=== PATIENT | male | born 1985 | race Caucasian/White ===

== ENCOUNTER 2019-06-27 15:46 | Emergency (ER) | payer SELFPAY ==
[2019-06-27 15:50] VITALS: BMI 31.4
[2019-06-27 15:52] VITALS: BP 129/86; PULSE 70; RESP 15; TEMP 36.6; O2SAT 97
--- NOTE | 2019-06-27 16:07 | ED_ITS ---
Entered by Samira Saldana, acting as scribe for David Allison HPI - Male Genitourinary General: Chief complaint: Urogenital-Male Stated complaint: scrotal pain Time Seen by Provider: 06/27/19 16:06 Source: patient Mode of arrival: ambulatory Limitations: no limitations History of Present Illness: HPI Narrative: 33 yo Male presents to ED with complaint of testicular pain. Pt states that it feels like he is being kicked in the balls. Pt states that he has constant throbbing pain. Pt states that he works nights and does heavy lifting at work. 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 MD Complaint: testicle pain Onset (ago): hour(s) (2) Duration: constant Location: left testicle Severity scale (1-10): 10 Quality: other (throbbing) Relieving factors: none Exacerbating factors: none Associated symptoms: Deny dysuria, fevers/chills, nausea or vomiting Review of Systems General: Reports: 10 or more systems reviewed and unremarkable except in HPI and below Const: Denies: fever or chills Eyes: Denies: change in vision, blurry vision or blind spots ENMT: Denies: throat pain, painful swallowing, hoarseness or mouth pain Card: Denies: chest pain, palpitations, irregular heart rhythm, edema or swelling of feet/ankles Resp: Denies: shortness of breath, productive cough or non-productive cough GI: Reports: abdominal pain (left lower); Denies: nausea or vomiting : Reports: testicular pain (left); Denies: painful urination Musc: Denies: neck pain, back pain, extremity pain or extremity swelling Skin/Breast: Denies: rash, itching or redness Neuro: Denies: headache, numbness in extremities or weakness in extremities Endo: Denies: excessive urination, excessive thirst or tired all the time Willie/Lymph: Denies: easy bruising or easy bleeding PFSH ED PFSH: Statuses (acute, chronic, etc) shown below reflect problem list status as previously entered and may not be historically accurate Social History Smoking and tobacco status: current every day smoker Physical Exam Const: COMMON NORMALS: no apparent distress, average body habitus, oriented x3, no limitations, healthy appearing, alert and well nourished HENMT: COMMON NORMALS: normocephalic, head/scalp atraumatic, hearing grossly normal bilaterally, external ears normal, EAC's normal, TM's normal bilaterally, external nose normal, nasal mucous membranes and turbinates normal, moist oral mucous membranes, oropharynx normal, dentition normal and gingiva normal HEAD & SCALP: normocephalic and atraumatic NOSE: external nose normal and nasal mucous membranes and turbinates normal EXTERNAL EAR: Yes external ears normal EXTERNAL AUDITORY CANAL: EAC's normal TYMPANIC MEMBRANE: TM's normal bilaterally Eye: COMMON NORMALS: PERRL, EOMs intact bilaterally, conjunctivae normal, no scleral icterus, no papilledema, normal visual rousseau by confrontation and fundi normal bilaterally CONJUNCTIVA: Yes conjunctivae normal PUPIL: Yes PERRL DIRECT OPHTHALMOSCOPY: Yes no papilledema and Yes fundi normal bilaterally Neck/C-Spine: COMMON NORMALS: full ROM, no lymphadenopathy, supple, no meningeal signs, no JVD, thyroid normal and no carotid bruits THYROID: thyroid normal Chest: COMMONS NORMALS: inspection of chest normal, palpation of chest normal, inspection of breasts normal and palpation of breasts normal Resp: COMMON NORMALS: normal respiratory effort, no retractions, no use of ac cessory muscles, clear to auscultation bilaterally and percussion normal AUSCULTATION: clear to auscultation bilaterally PERCUSSION: percussion normal Cardio: COMMON NORMALS: no JVD, regular rate, regular rhythm, S1 normal heart sound, S2 normal heart sound, no gallops, no clicks, no murmurs, no rub and peripheral pulses 2+ throughout RATE: regular rate RHYTHM: regular rhythm HEART SOUNDS: S1 normal and S2 normal PERIPHERAL PULSES: pulses 2+ throughout GI: COMMON NORMALS: normal to inspection, nondistended, normoactive bowel sounds, soft to palpation, non-tender, no hepatosplenomegaly, no masses and no bruits PALPATION: Yes soft and Yes no hepatosplenomegaly : COMMON NORMALS: Yes no CVA tenderness BLADDER/KIDNEY EXAM: Yes no CVA tenderness Back/Pelvis: COMMON NORMALS: no CVA tenderness, thoracic and lumbar spine normal to inspection, no thoracic nor lumbar tenderness, thoraco-lumbar ROM normal and straight leg raise negative bilaterally Extremity: COMMON NORMALS: normal to inspection, full ROM, normal capillary refill, no joint enlargement, no clubbing, cyanosis or edema, no calf tenderness and no pedal edema Neuro: COMMON NORMALS: oriented x3 SENSORIUM/ORIENTATION: Yes alert MENINGEAL SIGNS: Yes no meningeal signs Skin: COMMON NORMALS: no rashes or lesions noted, no wounds, skin turgor normal, no jaundice, no petechiae and no mottling GENERAL SKIN EXAM: no rashes or lesions noted and turgor normal Course Vital Signs: Vital signs: Vital Signs Temperature 97.8 F 06/27/19 15:52 Pulse Rate 70 06/27/19 15:52 Respiratory Rate 15 06/27/19 15:52 Blood Pressure 129/86 06/27/19 15:52 Pulse Oximetry 97 06/27/19 15:52 MDM - Male Lab Data: Labs: Lab Results 06/27/19 Range/Units 17:13 Urine Color Yellow (Yellow) Urine Appearance Clear (CLEAR) Urine pH 5 (5-7) Ur Specific Gravit y 1.030 (1.005-1.030) Urine Protein Neg (Negative) Urine Glucose (UA) Norm (Normal) Urine Ketones Negative (Negative) Urine Occult Blood 3+ H (Negative) Urine Nitrate Negative (Negative) Urine Bilirubin Neg (NEGATIVE) Urine Urobilinogen Norm (Negative) mg/dL Ur Leukocyte Rosalina ase Negative (Negative) Urine RBC 10-15 H (0-2) /hpf Urine WBC 0-4 H (0-5) /hpf Ur Squamous Epith Cells 0-4 H (0-5) Urine Bacteria 2+ H (NONE) Hyaline Casts 0-4 H Urine Mucus 4+ Discharge Plan Discharge Patient Disposition: Home, Self-Care Clinical Impression: Epididymitis Urinary tract infection Qualifiers: Urinary tract infection type: site unspecified Hematuria presence: with hematu karen Qualified Code(s): N39.0 - Urinary tract infection, site not specified Condition: Stable Prescriptions: New Cipro 500 mg tablet 500 mg PO BID Qty: 20 RF: 0 Discharge Orders: Discharge Order (Routine); Ordered 06/27/19 Ordered By: David Allison Discharge Diet: Usual diet Discharge Activity: Resume usual activity Patient Instructions: Epididymitis, Urinary Tract Infection in Men (ED) Activity Restrictions/Additional Instructions: Epididymitis increased noncaffeine/nonalcoholic fluid Case management will follow up with you to obtain a primary care provider Coding Level of Care Code ED Coal Pulverizing Operator for Chg Fwd Exam Problem Focused The documentation recorded by the Les rodriguez Carmen, accurately reflects the service I personally performed and the decisions made by me, David Allison Jun 27, 2019 15:46
--- NOTE | 2019-06-27 17:09 | US_ITS ---
WS: [id number] Scrotal and testicular ultrasound, 06/27/2019 Clinical Data: left testicle pain Comparison: None. Findings: The right testes measures 4.03 cm x 2.5 to cm x 2.7. cm. The left testes measures 4.29 cm x 2.49 cm x 3.14 cm. There is normal bilateral blood flow with no evidence of orchitis or torsion. No masses or abnormal c alcifications are noted. Both epididymides are enlarged with increased flow. There is a small left varicocele. US/US scrotum [id number] Impression: 1. Bilateral epididymitis. 2. Negative testes.
[2019-06-27 17:25] LABS: Add Urine Microscopic? YES; Bilirubin Urine Neg (NEGATIVE); Blood Urine 3+ (Negative); Glucose Urine UA Norm (Normal); Ketones Urine Negative (Negative); Leukocyte Esterase Urine Negative (Negative); Nitrate Urine Negative (Negative); Protein Urine Neg (Negative); Urine Appearance Clear (CLEAR); Urine Color Yellow (Yellow); Urobilinogen Urine Norm (Negative); pH Urine 5 (5-7)
[2019-06-27 17:47] LABS: Mucus Urine 4+
[2019-06-27 17:50] LABS: Bacteria Urine 2+; Squamous Epithelial Cell Urine 0-4 (0-5); WBC Urine 0-4 /hpf (0-5)
[2019-06-27 17:51] LABS: Add Urine Culture? Yes; Hyaline Casts Urine 0-4
[2019-06-27 18:22] VITALS: BP 124/77; PULSE 55; O2SAT 96
--- NOTE | 2019-06-28 14:37 | DCPLANNER ---
outside sales account manager had message to speak with patient about getting established with a primary care physician. outside sales account manager spoke with patient and offered to help patient get established with someone. Patient stated that he wanted to wait right now because he was in the middle of switching insurances and he wanted to wait until his new insurance was in effect. outside sales account manager told patient that when he was ready to get a primary care physician that he could call leather case finisher and they would be glad to help patient find a primary care physician.
== END 2019-06-27 18:22 | disposition home or self-care (01) ==
PROVIDERS: Emergency Provider Emergency Medicine
DX: N45.1 Epididymitis (principal); N39.0 Urinary tract infection, site not specified; R31.9 Hematuria, unspecified; F17.210 Nicotine dependence, cigarettes, uncomplicated
CPT/HCPCS: 76870; 81003; 87086; 99282; 99283

== ENCOUNTER 2021-06-26 03:33 | Emergency (ER) | payer BC, SELFPAY ==
[2021-06-26 03:34] VITALS: BP 131/78; PULSE 82; RESP 18; TEMP 36.7; O2SAT 95; BMI 32.7
--- NOTE | 2021-06-26 03:34 | XRR_ITS ---
PROCEDURE INFORMATION: Exam: XR Chest Exam date and time: 06/26/2021 3:34 AM Age: 35 years old Clinical indication: Sternal or substernal pain; Patient HX: C/O sudden onset of substernal chest pain. ; Additional info: Cp TECHNIQUE: Imaging protocol: XR of the chest. Views: 1 view. COMPARISON: CR Chest 1 [place] [id number] 01/20/2017 5:03 PM FINDINGS: Lungs: Bibasilar opacities which could be secondary to atelectasis or pneumonia. Pleural spaces: Unremarkable. No pleural effusion. No pneumothorax. Heart/Mediastinum: Unremarkable. No cardiomegaly. Bones/joints: Unremarkable. XR/XR chest 1V portable [id number] IMPRESSION: Bibasilar opacities which could be secondary to atelectasis or pneumonia.
--- NOTE | 2021-06-26 03:34 | ECG_ITS ---
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
[2021-06-26] MEDS: sodium chloride 0.9% 1,000 ML 999 ML IV (03:45)
--- NOTE | 2021-06-26 03:47 | ED_ITS ---
HPI - Chest Pain General: Chief Complaint: Chest Pain Stated Complaint: CHEST PAIN Time Seen by Provider: 06/26/21 03:39 Source: patient and EMS Mode of arrival: EMS Limitations: no limitations History of Present Illness: HPI narrative: 35-year-old male states he is at work tonight and started to feel like his hands were shaking states he started having some chest pain Worsening then had numbness to his hands and felt like he had blurry vision. He states that started an hour ago states the pain is worsened he started to feel little improved he does appear anxious here. Denies any shortness of breath or fever denies any worsening improving factors. Associated symptoms: Deny abdominal pain, dyspnea, fever(s), nausea or vomiting Review of Systems Const: Denies: fever(s), chills, body aches or change in appetite Eyes: Denies: blurry vision or eye discomfort ENMT: Denies: throat pain or dental pain Card: Reports: chest pain Resp: Denies: dyspnea GI: Denies: abdominal pain, nausea, vomiting or diarrhea : Denies: dysuria Musc: Denies: neck pain or back pain Skin/Breast: Denies: rash Neuro: Denies: headache(s) Psych: Denies: depression Willie/Lymph: Denies: easy bruising All/Imm: Denies: urticaria PFSH ED PFSH: Medical History No pertinent past medical history Social History Smoking and tobacco status: current every day smoker Physical Exam Const: COMMON NORMALS: no acute distress, patient oriented x3 and healthy appearing HENMT: COMMON NORMALS: normocephalic and atraumatic HEAD & SCALP: normocephalic and atraumatic Eye: COMMON NORMALS: Equal, round and reactive pupils present and EOMs intact bilaterally PUPIL: Yes Equal, round and reactive pupils present Neck/C-Spine: COMMON NORMALS: full ROM and supple Chest: COMMONS NORMALS: normal inspection of the chest and normal palpation of entire chest wall Resp: COMMON NORMALS: normal respiratory effort, No retractions, No use of accessory muscles and clear to auscultation bilaterally AUSCULTATION: clear to auscultation bilaterally Cardio: COMMON NORMALS: regular rate, regular rhythm and No murmurs present (Cardio) RATE: regular rate RHYTHM: regular rhythm GI: COMMON NORMALS: Normal to inspection, nondistended, normoactive bowel sounds present, Soft to palpation, non-tender and no masses PALPATION: Yes Soft to palpation Extremity: COMMON NORMALS: normal to inspection and full ROM Neuro: COMMON NORMALS: patient oriented x3, moves all extremities and no focal motor deficits Psych: COMMON NORMALS: mental status grossly normal, Normal thought process present and cooperative THOUGHT PROCESS: Normal thought process present Skin: COMMON NORMALS: no rashes or lesions noted and no wounds GENERAL SKIN EXAM: no rashes or lesions noted Course Vital Signs: Vital signs: Vital Signs Temperature 98.1 F 06/26/21 03:34 Pulse Rate 82 06/26/21 03:34 Respiratory Rate 17 06/26/21 04:46 Blood Pressure 131/78 06/26/21 03:34 Pulse Oximetry 97 06/26/21 04:46 MDM - Chest Pain MDM Narrative: Medical decision making narrative: Patient presents here with chest pain his initial repeat troponin here is negative so is a D-dimer x-ray and EKGs are normal as well. He is no signs of acute coronary syndrome or aortic dissection his pain is improved. He is stable for discharge is to follow-up with PCP and return if worsening. Lab Data: Labs: Lab Results 06/26/21 06/26/21 06/26/21 03:30 03:30 03:30 WBC 8.7 10^3/uL 10^3/ uL (4.0-10.0) RBC 6.04 10^6/uL H 10 ^6/uL (4.1-5.3) Hgb 18.3 g/dL H g/dL (11.7-16.6) Hct 54.8 % H % (42.0-52.0) MCV 90.7 fl fl (80-94) MCH 30.3 pg pg (28.0-34.0) MCHC 33.4 g/dL g/dL (30.0-36.0) RDW 13.7 % % (12.1-15.1) Plt Count 207 10^3/cmm 10^3 /cmm (130-400) MPV 12.8 fL H fL (7.4-10.4) Neut % (Auto) 39.5 % % Lymph % (Auto) 44.5 % % [place] % (Auto) 10.6 % % Eos % (Auto) 4.2 % % Baso % (Auto) 0.9 % % Neut # (Auto) 3.42 10^3/uL 10^3 /uL (1.8-7.7) Lymph # (Auto) 3.9 10^3/uL 10^3/ uL (0.8-4.8) [place] # (Auto) 0.9 10^3/uL 10^3/ uL (0.2-0.9) Eos # (Auto) 0.4 10^3/uL 10^3/ uL (0.0-0.8) Baso # (Auto) 0.1 10^3/uL 10^3/ uL (0.0-0.1) Nucleated RBC % (a uto) 0 % % Nucleated RBCs # 0.0 /100WBC /100W BC D-Dimer Sodium 140 mmol/L mmol/L (136-145) Potassium 4.1 mmol/L mmol/L (3.5-5.1) Chloride 102 mmol/L mmol/L (98-107) Carbon Dioxide 24 mmol/L mmol/L (22-29) Anion Gap 18.1 (5-19) BUN 18 mg/dL mg/dL (6-20) Creatinine 0.9 mg/dL mg/dL (0.7-1.2) GFR Calculation 95.5 mL/min mL/mi n (90-130) Glucose 78 mg/dL mg/dL (65-115) Calculated Osmolal ity 291 mOsm/kg mOsm/ kg (285-295) Calcium 8.9 mg/dL mg/dL (8.5-10.5) Total Bilirubin 0.4 mg/dL mg/dL (0.15-1.2) AST 26 U/L U/L (0-40) ALT 60 U/L H U/L (0-41) Alkaline Phosphata se 115 IU/L IU/L (40-130) Troponin T Baselin e 6 ng/L ng/L (0-15) Troponin T 120 Min [place] Delta Troponin T Total Protein 7.2 g/dL g/dL (6.6-8.7) Albumin 4.7 g/dL g/dL (3.5-5.2) Globulin 2.5 g/dL g/dL (1.3-4.6) 06/26/21 06/26/21 03:30 04:45 WBC RBC Hgb Hct MCV MCH MCHC RDW Plt Count MPV Neut % (Auto) Lymph % (Auto) [place] % (Auto) Eos % (Auto) Baso % (Auto) Neut # (Auto) Lymph # (Auto) [place] # (Auto) Eos # (Auto) Baso # (Auto) Nucleated RBC % (a uto) Nucleated RBCs # D-Dimer <= 0.27 ug/mIFEU ug/mIFEU (0-0.59) Sodium Potassium Chloride Carbon Dioxide Anion Gap BUN Creatinine GFR Calculation Glucose Calculated Osmolal ity Calcium Total Bilirubin AST ALT Alkaline Phosphata se Troponin T Baselin e Troponin T 120 Min [place] 6.00 ng/L ng/L (0-15) Delta Troponin T 0 ABS# ABS# (0-10) Total Protein Albumin Globulin Imaging Data^: CXR: Attestation: I personally reviewed and interpreted this imaging study as follows: My impression: no acute abnormality EKG Data^: EKG 1: Attestation: I personally reviewed and interpreted this EKG as follows: EKG interpretation date: 06/26/21 EKG interpretation time: 03:42 Interpretation: nsr hr [address] or t wave abnormalities qrs 124 qtc 419 EKG 2: Attestation: I personally reviewed and interpreted this EKG as follows: EKG interpretation date: 06/26/21 EKG interpretation time: 04:57 Interpretation: sinus semea hr [address] or t wave abnormalities qrs 103 qtc 413 Discharge Plan Discharge Patient Disposition: Home Clinical Impression: Chest pain Qualifiers: Chest pain type: unspecified Qualified Code(s): R07.9 - Chest pain, unspecified Condition: Stable Prescriptions: No Action Cipro 500 mg tablet 500 mg PO BID Qty: 20 RF: 0 Discharge Orders: Discharge ED (Routine); Ordered 06/26/21 Ordered By: Alia West Discharge Diet: Advance as tolerated Discharge Activity: Resume usual activity Patient Instructions: Chest Pain (ED) Coding Level of Care Code ED Rooms Director for Chg Fwd Exam Comprehensive
[2021-06-26 03:56] LABS: Basophils # 0.1 10^3/uL (0.0-0.1); Basophils % 0.9 %; Eosinophils # 0.4 10^3/uL (0.0-0.8); Eosinophils % 4.2 %; Hematocrit 54.8 % (42.0-52.0); Hemoglobin 18.3 g/dL (11.7-16.6); Lymphocytes # 3.9 10^3/uL (0.8-4.8); Lymphocytes % 44.5 %; Mean Corpuscular HGB Conc 33.4 g/dL (30.0-36.0); Mean Corpuscular Hemoglobin 30.3 pg (28.0-34.0); Mean Corpuscular Volume 90.7 fl (80-94); Mean Platelet Volume 12.8 fL (7.4-10.4); Monocytes # 0.9 10^3/uL (0.2-0.9); Monocytes % 10.6 %; Neutrophils # 3.42 10^3/uL (1.8-7.7); Neutrophils % 39.5 %; Nucleated Red Blood Cells % 0 %; Platelet Count 207 10^3/cmm (130-400); Red Blood Count 6.04 10^6/uL (4.1-5.3); Red Cell Distribution Width 13.7 % (12.1-15.1); White Blood Count 8.7 10^3/uL (4.0-10.0)
[2021-06-26 04:07] LABS: D Dimer <= 0.27 ug/mIFEU (0-0.59)
[2021-06-26 04:12] LABS: Troponin(5th) Baseline 6 ng/L (0-15)
[2021-06-26 04:15] LABS: Alanine Aminotransferase 60 U/L (0-41); Albumin Level 4.7 g/dL (3.5-5.2); Alkaline Phosphatase 115 IU/L (40-130); Anion Gap 18.1 (5-19); Aspartate Amino Transferase 26 U/L (0-40); Blood Urea Nitrogen 18 mg/dL (6-20); Calcium 8.9 mg/dL (8.5-10.5); Carbon Dioxide 24 mmol/L (22-29); Chloride 102 mmol/L (98-107); Globulin 2.5 g/dL (1.3-4.6); Glomerular Filtration Rate 95.5 mL/min (90-130); Glucose 78 mg/dL (65-115); Osmolality Calculated 291 mOsm/kg (285-295); Potassium 4.1 mmol/L (3.5-5.1); Sodium 140 mmol/L (136-145); Total Bilirubin 0.4 mg/dL (0.15-1.2); Total Protein 7.2 g/dL (6.6-8.7)
[2021-06-26 04:46] VITALS: RESP 17; O2SAT 97
[2021-06-26] MEDS: morphine 4 mg/mL SDV 1 mL IVP (04:46)
[2021-06-26] MEDS: ondansetron 2 mg/ML SDV 2 mL 4 MG IVP (04:50)
[2021-06-26 05:13] LABS: Troponin 5 2HR Delta 0 ABS# (0-10)
[2021-06-26 05:33] VITALS: BP 128/73; PULSE 75; RESP 18; O2SAT 97
--- NOTE | 2021-06-26 05:34 | ECG_ITS ---
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: : 1985 Requested By: Alia West Order Number: [id number] Reading MD: YUNIER WEATHERS Measurements Intervals [place] Rate: 54 P: 31 IN: 175 QRS: -20 QRSD: 103 T: 16 QT: 426 QTc: 407 Interpretive Statements SINUS BRADYCARDIA MINIMAL VOLTAGE CRITERIA FOR LVH, CONSIDER NORMAL VARIANT [MEETS CRITERIA IN ONE OF: R(aVL), S(V1), R(V5), R(V5/V6)+S(V1)] SEPTAL MYOCARDIAL INFARCTION , OF INDETERMINATE AGE [40+ ms Q WAVE IN V1/V2] Compared to ECG 06/26/2021 03:42:55 Myocardial infarct finding now present Sinus rhythm no longer present Intraventricular conduction delay no longer present Electronically Signed On 06-27-2021 17:49:41 TELETYPE INSTALLER by YUNIER WEATHERS [email or web address] memorial [email or web address] Your Imaginationuniversity hospitals [facility].[employer]/store/OM/[id number]
--- NOTE | 2021-06-28 11:43 | DCPLANNER ---
manager banquet had message to speak with patient about getting a primary care physician. manager banquet called phone number [phone], unable to speak with patient at this time, a voicemail was left for patient to return counseling case manager phone call.
== END 2021-06-26 05:35 | disposition home or self-care (01) ==
PROVIDERS: Emergency Provider Emergency Medicine
DX: R07.9 Chest pain, unspecified (principal); F17.210 Nicotine dependence, cigarettes, uncomplicated
CPT/HCPCS: 71045; 80053; 84484; 85025; 85378; 93005; 96361; 96374; 96375; 99284; J2270; J2405; J7030

== ENCOUNTER → 2021-06-28 14:31 | Outpatient (BNVA) | payer BC, SELFPAY | PROVIDERS: Visit Provider Nurse Practitioner Family | DX: Z20.822 Contact with and (suspected) exposure to COVID-19 (principal); Z71.6 Tobacco abuse counseling | CPT/HCPCS: 87635 ==

== ENCOUNTER → 2021-08-27 17:40 | Outpatient (BNVA) | payer BC, SELFPAY | PROVIDERS: Visit Provider Registered Nurse Neonatal Intensive Care | DX: R50.9 Fever, unspecified (principal); Z20.822 Contact with and (suspected) exposure to COVID-19 | CPT/HCPCS: 87400; 87635 ==

== ENCOUNTER → 2022-05-16 12:30 | Outpatient (BNVA) | payer BC, SELFPAY | PROVIDERS: Visit Provider Emergency Medicine | DX: J11.1 Influenza due to unidentified influenza virus with other respiratory manifestations (principal); B34.9 Viral infection, unspecified | CPT/HCPCS: 87400 ==

== ENCOUNTER → 2023-02-01 11:00 | Outpatient (BNVA) | payer BC, SELFPAY | PROVIDERS: Visit Provider Family Medicine | DX: Z13.6 Encounter for screening for cardiovascular disorders (principal) | CPT/HCPCS: 80053; 80061; 83036; 85025 ==

== ENCOUNTER 2023-03-24 02:41 | Emergency (ER) | payer BC, SELFPAY ==
[2023-03-24 02:44] VITALS: BP 154/101; PULSE 74; RESP 18; TEMP 36.6; O2SAT 96; BMI 31.4
--- NOTE | 2023-03-24 02:49 | ECG_ITS ---
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 Measurements Intervals [place] Rate: 68 P: 33 ND: 177 QRS: -16 QRSD: 101 T: 24 QT: 366 QTc: 391 Interpretive Statements SINUS RHYTHM Compared to ECG 06/26/2021 04:57:39 Sinus bradycardia no longer present Myocardial infarct finding no longer present Electronically Signed On 03-24-2023 11:04:19 CDT by Maya Orozco M.D. [id number]
--- NOTE | 2023-03-24 02:54 | XRR_ITS ---
PROCEDURE INFORMATION: Exam: XR Chest Exam date and time: 03/24/2023 2:58 AM Age: 37 years old Clinical indication: Chest wall pain; Patient HX: Middle chest pain that start 12pm yesterday TECHNIQUE: Imaging protocol: Radiologic exam of the chest. Views: 1 view. COMPARISON: CR XR chest 1V portable [id number] 06/26/2021 3:38 AM FINDINGS: Lungs: Unremarkable. No consolidation. Pleural spaces: Unremarkable. No pleural effusion. No pneumothorax. Heart/Mediastinum: Unremarkable. No cardiomegaly. Bones/joints: Unremarkable. XR/XR chest 1V portable [id number] IMPRESSION: No acute findings.
--- NOTE | 2023-03-24 03:06 | ED_ITS ---
HPI - Chest Pain General: Chief Complaint: Chest Pain Stated Complaint: Chest Pains\ BP High Time Seen by Provider: 03/24/23 02:43 History of Present Illness: patient presents to the ER with chest pain since approximately midnight. Patient says he has been diaphoretic feeling hot and having a headache. Patient checked his blood pressure and it was 177/106. Patient [place] any cardiac cardiac history. He denies any radiation of his pain. 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 Patient's currently pain-free at this time. Review of Systems General: Reports: 10 or more systems reviewed and unremarkable except in HPI and below PFSH ED PFSH: Medical History History of asthma History of bipolar disorder Hasn't been on medication for about 7 years. History of environmental allergies Surgical History No pertinent past surgical history Family History Father , over dose No problems noted. Mother Hemochromatosis Grandmother No problems noted. Grandmother Cancer lymphoma CAD (coronary artery disease) Diabetes Social History Smoking and tobacco/nicotine status: current every day tobacco/nicotine user Physical Exam Const: COMMON NORMALS: no acute distress, average body habitus, patient oriented x3, no limitations, healthy appearing, alert and well nourished HENMT: COMMON NORMALS: normocephalic, atraumatic, hearing grossly normal bilaterally, Normal external nose present, moist oral mucous membranes and oropharynx normal HEAD & SCALP: normocephalic and atraumatic NOSE: Normal external nose present Neck/C-Spine: COMMON NORMALS: no JVD Chest: COMMONS NORMALS: normal inspection of the chest; negative for normal palpation of entire chest wall ( Palpation of the chest reproduces chest pain.) Resp: COMMON NORMALS: normal respiratory effort, No retractions, No use of accessory muscles and clear to auscultation bilaterally AUSCULTATION: clear to auscultation bilaterally Cardio: COMMON NORMALS: no JVD, regular rate, regular rhythm, S1 normal heart sound present, S2 normal heart sound present, No gallops present (Cardio), No clicks present (Cardio), No murmurs present (Cardio) and No rub (Cardio) RATE: regular rate RHYTHM: regular rhythm HEART SOUNDS: S1 normal heart sound present and S2 normal heart sound present GI: COMMON NORMALS: Normal to inspection, nondistended, normoactive bowel sounds present, Soft to palpation, non-tender, No hepatosplenomegaly present and no masses PALPATION: Yes Soft to palpation and Yes No hepatosplenomegaly present : COMMON NORMALS: Yes no CVA tenderness BLADDER/KIDNEY EXAM: Yes no CVA tenderness Back/Pelvis: COMMON NORMALS: no CVA tenderness Neuro: COMMON NORMALS: patient oriented x3 SENSORIUM/ORIENTATION: Yes alert Course Vital Signs: Vital signs: Vital Signs Temperature 97.9 F 03/24/23 02:44 Pulse Rate 80 03/24/23 03:12 Respiratory Rate 18 03/24/23 02:44 Blood Pressure 120/88 03/24/23 03:12 Pulse Oximetry 96 03/24/23 02:44 Oxygen Delivery Me thod Room Air 03/24/23 02:44 MDM - Chest Pain Medical Decision Making Patient presents to the ER for evaluation of chest pain. Cardiac work-up was performed with serial EKGs serial enzymes and chest x-ray. All of which was essentiall Is felt that patient's chest pain is noncardiac in nature patient be discharged to follow-up with his PCP in 7 days or sooner as needed. Differential Diagnosis Unlikely acute massive pulmonary embolism, acute respiratory failure, acute myocardial infarction, cardiac arrest or sudden cardiac Medical Records I reviewed the patient's medical records. Lab Data I reviewed the patient's lab results. 03/24/23 03:02 03/24/23 03:02 Radiology Impressions Chest X-Ray 03/24/23 02:54 IMPRESSION: No acute findings. Laboratory Results WBC 8.04 10^3/uL (3.29-11.43) 03/24/23 03:02 RBC 5.47 10^6/uL (3.85-5.65) 03/24/23 03:02 Hgb 16.70 g/dL (11.27-16.99) 03/24/23 03:02 Hct 49.5 % (37-53) 03/24/23 03:02 MCV 90.5 fl (82-101) 03/24/23 03:02 MCH 30.5 pg (27-33) 03/24/23 03:02 MCHC 33.7 g/dL (30-55) 03/24/23 03:02 RDW 13.8 % (12.1-15.1) 03/24/23 03:02 Plt Count 189 10^3/cmm (157-399) 03/24/23 03:02 MPV 12.2 fL (7.4-10.4) H 03/24/23 03:02 Neut % (Auto) 48.1 % 03/24/23 03:02 Lymph % (Auto) 36.8 % 03/24/23 03:02 [place] % (Auto) 11.1 % 03/24/23 03:02 Eos % (Auto) 2.5 % 03/24/23 03:02 Baso % (Auto) 1.0 % 03/24/23 03:02 Neut # (Auto) 3.87 10^3/uL (1.8-7.7) 03/24/23 03:02 Lymph # (Auto) 3.0 10^3/uL (0.8-4.8) 03/24/23 03:02 [place] # (Auto) 0.9 10^3/uL (0.2-0.9) 03/24/23 03:02 Eos # (Auto) 0.2 10^3/uL (0.0-0.8) 03/24/23 03:02 Baso # (Auto) 0.1 10^3/uL (0.0-0.1) 03/24/23 03:02 Nucleated RBC % (auto) 0 % 03/24/23 03:02 Nucleated RBCs # 0.0 /100WBC 03/24/23 03:02 Sodium 142 mmol/L (136-145) 03/24/23 03:02 Potassium 4.2 mmol/L (3.5-5.1) 03/24/23 03:02 Chloride 106 mmol/L (98-107) 03/24/23 03:02 Carbon Dioxide 25 mmol/L (22-29) 03/24/23 03:02 Anion Gap 15.2 (5-19) 03/24/23 03:02 BUN 22 mg/dL (6-20) H 03/24/23 03:02 Creatinine 1.0 mg/dL (0.7-1.2) 03/24/23 03:02 GFR Calculation 83.6 mL/min (90-130) L 03/24/23 03:02 Glucose 96 mg/dL (65-115) 03/24/23 03:02 POC Glucose 85 mg/dL (70-110) 03/24/23 03:43 Calculated Osmolality 297 mOsm/kg (285-295) H 03/24/23 03:02 Calcium 9.5 mg/dL (8.5-10.5) 03/24/23 03:02 Total Bilirubin 0.4 mg/dL (0.15-1.2) 03/24/23 03:02 AST 28 U/L (0-40) 03/24/23 03:02 ALT 61 U/L (0-41) H 03/24/23 03:02 Alkaline Phosphatase 93 U/L (40-130) 03/24/23 03:02 Troponin T Baseline < 6 ng/L (0-15) 03/24/23 03:02 Troponin T 120 Minute 6.00 ng/L (0-15) 03/24/23 05:14 Total Protein 6.5 g/dL (6.6-8.7) L 03/24/23 03:02 Albumin 4.3 g/dL (3.5-5.2) 03/24/23 03:02 Globulin 2.2 g/dL (1.3-4.6) 03/24/23 03:02 Urine Color Yellow (Yellow) 03/24/23 04:15 Urine Appearance Clear (CLEAR) 03/24/23 04:15 Urine pH 5 (5-7) 03/24/23 04:15 Ur Specific [place] 1.025 (1.005-1.030) 03/24/23 04:15 Urine Protein Neg (Negative) 03/24/23 04:15 Urine Glucose (UA) Norm (Normal) 03/24/23 04:15 Urine Ketones Negative (Negative) 03/24/23 04:15 Urine Blood 2+ (Negative) H 03/24/23 04:15 Urine Nitrate Negative (Negative) 03/24/23 04:15 Urine Bilirubin Neg (Negative) 03/24/23 04:15 Urine Urobilinogen Neg mg/dL (Negative) 03/24/23 04:15 Ur Leukocyte Esterase Negative (Negative) 03/24/23 04:15 Urine RBC 0-4 /hpf (0-2) H 03/24/23 04:15 Urine WBC None /hpf (0-5) 03/24/23 04:15 Ur Squamous Epith Cells None /hpf (0-5) 03/24/23 04:15 Amorphous Sediment Not Reportable 03/24/23 04:15 Urine Bacteria None /hpf (NONE) 03/24/23 04:15 Urine Mucus 1+ /hpf 03/24/23 04:15 Urine Opiates Screen Negative ng/mL (Negative) 03/24/23 04:15 Ur Barbiturates Screen Negative ng/mL (Negative) 03/24/23 04:15 Ur Phencyclidine Scrn Negative ng/mL (Negative) 03/24/23 04:15 Ur Amphetamines Screen Negative ng/mL (Negative) 03/24/23 04:15 U Benzodiazepines Scrn Negative ng/mL (Negative) 03/24/23 04:15 Urine Cocaine Screen Negative ng/mL (Negative) 03/24/23 04:15 U Marijuana (THC) Screen Negative ng/mL (Negative) 03/24/23 04:15 All radiology interpretation(s) finalized by discharge EKG Data EKG 1: I personally reviewed and interpreted this EKG as follows: EKG interpretation date: 03/24/23 EKG interpretation time: 02:49 Prior EKG tracings: not available for review Interpretation: EKG showed ventricular rate 68 bpm, ME interval 177, QRS duration 101, QTc of 384, sinus rhythm, no ST-T wave changes Discharge Plan Discharge Patient Disposition: Home Clinical Impression: Atypical chest pain Condition: Stable Prescriptions: No Action sertraline [Zoloft] 25 mg tablet 25 mg PO DAILY Qty: 30 0RF lamotrigine [Lamictal] 25 mg tablet 25 mg PO BID 30 Days Qty: 60 0RF albuterol sulfate 90 mcg/actuation HFA aerosol inhaler 2 puff inhalation QID PRN (Reason: shortness of breath or wheezing) Qty: 8.5 0RF propranolol 10 mg tablet 10 mg PO BID Qty: 60 0RF Discharge Orders: Discharge ED (Routine); Ordered 03/24/23 Ordered By: Casey Riley Referrals: Lashaun Herman DO [Primary Care Provider] - 1 week Patient Instructions: Chest Pain - Noncardiac Activity Restrictions/Additional Instructions: please follow-up with your family practice physician within the next 7 days for further evaluation and testing as needed. If your chest pain returns or worsens please feel free to return to the ER. Coding Level of Care Code ED Teller Vault for Isabella Johnson
[2023-03-24 03:07] LABS: Basophils # 0.1 10^3/uL (0.0-0.1); Eosinophils # 0.2 10^3/uL (0.0-0.8); Eosinophils % 2.5 %; Hematocrit 49.5 % (37-53); Lymphocytes % 36.8 %; Mean Corpuscular HGB Conc 33.7 g/dL (30-55); Mean Corpuscular Hemoglobin 30.5 pg (27-33); Mean Corpuscular Volume 90.5 fl (82-101); Mean Platelet Volume 12.2 fL (7.4-10.4); Monocytes # 0.9 10^3/uL (0.2-0.9); Monocytes % 11.1 %; Neutrophils # 3.87 10^3/uL (1.8-7.7); Neutrophils % 48.1 %; Nucleated Red Blood Cells % 0 %; Platelet Count 189 10^3/cmm (157-399); Red Blood Count 5.47 10^6/uL (3.85-5.65); Red Cell Distribution Width 13.8 % (12.1-15.1); White Blood Count 8.04 10^3/uL (3.29-11.43)
[2023-03-24 03:12] VITALS: BP 120/88; PULSE 80
[2023-03-24 03:29] LABS: Alanine Aminotransferase 61 U/L (0-41); Albumin Level 4.3 g/dL (3.5-5.2); Alkaline Phosphatase 93 U/L (40-130); Anion Gap 15.2 (5-19); Aspartate Amino Transferase 28 U/L (0-40); Blood Urea Nitrogen 22 mg/dL (6-20); Calcium 9.5 mg/dL (8.5-10.5); Carbon Dioxide 25 mmol/L (22-29); Chloride 106 mmol/L (98-107); Globulin 2.2 g/dL (1.3-4.6); Glomerular Filtration Rate 83.6 mL/min (90-130); Glucose 96 mg/dL (65-115); Osmolality Calculated 297 mOsm/kg (285-295); Potassium 4.2 mmol/L (3.5-5.1); Sodium 142 mmol/L (136-145); Total Bilirubin 0.4 mg/dL (0.15-1.2); Total Protein 6.5 g/dL (6.6-8.7); Troponin(5th) Baseline < 6 ng/L (0-15)
[2023-03-24 03:47] LABS: Glucose Point of Care 85 mg/dL (70-110)
[2023-03-24 04:28] LABS: Add Urine Microscopic? YES; Bilirubin Urine Neg (Negative); Blood Urine 2+ (Negative); Glucose Urine UA Norm (Normal); Ketones Urine Negative (Negative); Leukocyte Esterase Urine Negative (Negative); Mucus Urine 1+ /hpf; Nitrate Urine Negative (Negative); Protein Urine Neg (Negative); RBC Urine 0-4 /hpf (0-2); Specific Gravity, Urine 1.025 (1.005-1.030); Urine Appearance Clear (CLEAR); Urine Color Yellow (Yellow); Urobilinogen Urine Neg (Negative); pH Urine 5 (5-7)
[2023-03-24 04:29] LABS: Add Urine Culture? No
[2023-03-24 04:32] LABS: Amphetamines Screen Urine Negative (Negative); Barbiturates Screen Urine Negative (Negative); Benzodiazepines Screen Urine Negative (Negative); Cocaine Screen Urine Negative (Negative); Opiate Screen Urine Negative (Negative); PCP Screen Urine Negative (Negative); THC Screen Urine Negative (Negative)
[2023-03-24 05:42] LABS: Troponin 5 2HR < 6.0 ng/L (0-15); Troponin 5 2HR Delta 0 ABS# (0-10)
[2023-03-24 05:44] VITALS: BP 144/90; PULSE 84; O2SAT 95
[2023-03-24 05:45] VITALS: BP 144/90; PULSE 89; RESP 18; O2SAT 98
== END 2023-03-24 05:48 | disposition home or self-care (01) ==
PROVIDERS: Emergency Provider Emergency Medicine; PCP Family Medicine
DX: R07.89 Other chest pain (principal); F17.210 Nicotine dependence, cigarettes, uncomplicated
CPT/HCPCS: 36416; 71045; 80053; 80306; 81001; 82962; 84484; 85025; 93005; 99285

== ENCOUNTER 2023-05-16 14:38 | Outpatient (CLI) | payer BC, SELFPAY ==
--- NOTE | 2023-05-16 15:00 | USCV_ITS ---
Dave Valdes Age: 37 Gender: M : 1985 Exam Date: 05/16/2023 14:55 Ordering Phys: Lashaun Herman DO Technologist: CT [place] [facility] [place] Indication: CP BP: 118 / 68 HR: 75 Rhythm: Sinus Technical Quality: Adequate MEASUREMENTS (Male / Female) Normal Values 2D ECHO LV Chamber Size 4.9 cm RV Chamber Size 4.2 cm LVOT Diameter 2.1 cm LV Ejection Fraction MOD 2C 66.7 % LV Ejection Fraction 2C AL 66.2 % LA Diameter 4.3 cm LA Width 3.5 cm LA Height 5.0 cm RA Width 3.4 cm RA Height 4.8 cm Aorta at Sinotubular Diameter 2.2 cm IVC Diameter 1.6 cm M-MODE Aortic Annulus Diameter 3.6 cm LA Ao Ratio MM 1.3 MV E Point Septal Separation 1.1 cm DOPPLER AV Peak Velocity 103.0 cm/s LVOT Peak Velocity 100.0 cm/s AV Area Cont Eq vti 3.3 cm squared AV Area Cont Eq pk 3.3 cm squared MV E' Velocity 13.0 cm/s TR Peak Velocity 76.0 cm/s TR Peak Gradient 2.3 mmHg TV Peak E Velocity 78.0 cm/s Right Atrial Pressure 3.0 mmHg Pulmonary Artery Systolic Pressu 5.3 mmHg PV Peak Velocity 109.0 cm/s FINDINGS Left Ventricle Left ventricle is normal in size. LV systolic function is normal with EF of 55-60%. No regional wall motion abnormalities are seen. Right Ventricle Normal in size and function Right Atrium Normal in size Left Atrium Normal in size Mitral Valve Structurally normal mitral valve. Mild mitral regurgitation. Aortic Valve Structurally normal aortic valve. No significant stenosis or regurgitation. Tricuspid Valve Trace tricuspid regurgitation. Insufficient TR jet to calculate RVSP. Pulmonic Valve Not well visualized. Pericardium Normal Aorta Normal in size IVC Appears to be normal CONCLUSIONS Systolic function is normal with EF of 55-60%. Mild mitral regurgitation Trace tricuspid regurgitation No comparison studies are available. Philippe Alvarez MD (Electronically Signed) Final Date: 17 May 2023 13:55 S
== END 2023-05-16 14:39 | disposition home or self-care (01) ==
LOC: RAD 14:39
PROVIDERS: PCP Family Medicine; Visit Provider Family Medicine
DX: R07.89 Other chest pain (principal); I34.0 Nonrheumatic mitral (valve) insufficiency
CPT/HCPCS: 93306

== ENCOUNTER 2024-05-06 01:10 | Emergency (ER) | payer BC, SELFPAY ==
[2024-05-06 01:11] VITALS: BP 129/77; PULSE 72; RESP 26; TEMP 36.8; O2SAT 98; BMI 27.6
--- NOTE | 2024-05-06 01:21 | ECG_ITS ---
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
[2024-05-06 01:27] LABS: Basophils # 0.1 10^3/uL (0.0-0.1); Basophils % 0.8 %; Eosinophils % 0.4 %; Lymphocytes # 2.5 10^3/uL (0.8-4.8); Lymphocytes % 27.4 %; Mean Corpuscular HGB Conc 34.7 g/dL (30-55); Mean Corpuscular Hemoglobin 31.1 pg (27-33); Mean Corpuscular Volume 89.4 fl (82-101); Mean Platelet Volume 13.1 fL (7.4-10.4); Monocytes # 0.8 10^3/uL (0.2-0.9); Monocytes % 8.9 %; Neutrophils # 5.76 10^3/uL (1.8-7.7); Neutrophils % 62.2 %; Nucleated Red Blood Cells % 0 %; Platelet Count 199 10^3/cmm (157-399); Red Blood Count 6.15 10^6/uL (3.85-5.65); Red Cell Distribution Width 13.2 % (12.1-15.1); White Blood Count 9.26 10^3/uL (3.29-11.43)
--- NOTE | 2024-05-06 01:27 | ED_ITS ---
HPI - Syncope 2 General: Chief Complaint: Syncope Stated Complaint: AMS Time Seen by Provider: 05/06/24 01:12 Source: patient and EMS Mode of arrival: EMS Limitations: no limitations History of Present Illness: 38-year-old male who was working at [employer] home tonight per EMS patient started hyperventilating felt lightheaded and had a syncopal event. He appears anxious here. He denies any headache or chest pain he states he is feeling improved currently denies any vomiting or diarrhea Associated symptoms: Deny abdominal pain, chest pain, fever(s), headache(s) or nausea Related Data Previous Rx's Medication Instructions Recorded albuterol sulfate 90 mcg/actuation 2 puff inhalation QID PRN 01/31/23 aerosol inhaler shortness of breath or wheezing #8.5 grams lamotrigine 25 mg tablet (Lamictal) 25 mg PO BID 30 days #180 tabs 05/02/23 propranolol 10 mg tablet 10 mg PO BID #180 tabs 05/02/23 sertraline 25 mg tablet (Zoloft) 25 mg PO DAILY #90 tabs 05/02/23 Allergies Allergy/AdvReac Type Severity Reaction Status Date / Time No Known Allergies Allergy Verified 05/02/23 14:48 Review of Systems 2 Const: Denies: fever(s), chills, body aches or change in appetite ENMT: Denies: throat pain or dental pain Card: Reports: syncope; Denies: chest pain Resp: Denies: dyspnea GI: Denies: abdominal pain, nausea, vomiting or diarrhea Musc: Denies: neck pain or back pain Skin/Breast: Denies: rash Neuro: Denies: headache(s) PFS ED 2 PFSH: Medical History History of asthma History of bipolar disorder Hasn't been on medication for about 7 years. History of environmental allergies Surgical History No pertinent past surgical history Family History Father , over dose No problems noted. Mother Hemochromatosis Grandmother No problems noted. Grandmother Cancer lymphoma CAD (coronary artery disease) Diabetes Social History (Reviewed 05/02/23 @ 15:00 by JOANN Woody Smoking and tobacco/nicotine status: current every day tobacco/nicotine user Physical Exam 2 Const: COMMON NORMALS: no acute distress, patient oriented x3 and healthy appearing GENERAL APPEARANCE: anxious HENMT: COMMON NORMALS: normocephalic and atraumatic HEAD & SCALP: n ormocephalic and atraumatic Eye: COMMON NORMALS: conjunctivae normal CONJUNCTIVA: Yes conjunctivae normal Neck/C-Spine: COMMON NORMALS: full ROM and supple Chest: COMMONS NORMALS: normal inspection of the chest Resp: COMMON NORMALS: normal respiratory effort, No retractions, No use of accessory muscles and clear to auscultation bilaterally AUSCULTATION: clear to auscultation bilaterally Cardio: COMMON NORMALS: regular rate, regular rhythm and No murmurs present (Cardio) RATE: regular rate RHYTHM: regular rhythm Extremity: COMMON NORMALS: normal to inspection and full ROM Neuro: COMMON NORMALS: patient oriented x3, moves all extremities and no focal motor deficits Psych: COMMON NORMALS: mental status grossly normal, Normal thought process present and cooperative THOUGHT PROCESS: Normal thought process present Skin: COMMON NORMALS: no rashes or lesions noted and no wounds GENERAL SKIN EXAM: no rashes or lesions noted Course 2 Vital Signs: Vital signs: Vital Signs Temperature 98.2 F 05/06/24 01:11 Pulse Rate 87 05/06/24 03:33 Respiratory Rate 15 05/06/24 03:33 Blood Pressure 126/76 05/06/24 03:33 Pulse Oximetry 98 05/06/24 03:33 Oxygen Delivery Me thod Room Air 05/06/24 01:57 MDM - Syncope Medical Decision Making Patient presents after syncopal event blood work including troponin EKG and CT head are all normal he feels improved here he is stable for discharge he is to follow-up with PCP as he has had multiple occurrence of this in the past he is return if worsening he understands agrees to plan. Medical Records I reviewed the patient's medical records. Lab Data I reviewed the patient's lab results. 05/06/24 01:06 05/06/24 01:[address] 05/06/24 02:26 IMPRESSION: 1. No acute intracranial hemorrhage or mass effect. 2. No definite acute infarct by CT, see above. 3. Other findings discussed above. Laboratory Results WBC 9.26 10^3/uL (3.29-11.43) 05/06/24 01:06 RBC 6.15 10^6/uL (3.85-5.65) H 05/06/24 01:06 Hgb 19.10 g/dL (11.27-16.99) H 05/06/24 01:06 Hct 55.0 % (37-53) H 05/06/24 01:06 MCV 89.4 fl (82-101) 05/06/24 01:06 MCH 31.1 pg (27-33) 05/06/24 01:06 MCHC 34.7 g/dL (30-55) 05/06/24 01:06 RDW 13.2 % (12.1-15.1) 05/06/24 01:06 Plt Count 199 10^3/cmm (157-399) 05/06/24 01:06 MPV 13.1 fL (7.4-10.4) H 05/06/24 01:06 Neut % (Auto) 62.2 % 05/06/24 01:06 Lymph % (Auto) 27.4 % 05/06/24 01:06 [place] % (Auto) 8.9 % 05/06/24 01:06 Eos % (Auto) 0.4 % 05/06/24 01:06 Baso % (Auto) 0.8 % 05/06/24 01:06 Neut # (Auto) 5.76 10^3/uL (1.8-7.7) 05/06/24 01:06 Lymph # (Auto) 2.5 10^3/uL (0.8-4.8) 05/06/24 01:06 [place] # (Auto) 0.8 10^3/uL (0.2-0.9) 05/06/24 01:06 Eos # (Auto) 0.0 10^3/uL (0.0-0.8) 05/06/24 01:06 Baso # (Auto) 0.1 10^3/uL (0.0-0.1) 05/06/24 01:06 Nucleated RBC % (auto) 0 % 05/06/24 01:06 Nucleated RBCs # 0.0 /100WBC 05/06/24 01:06 Sodium 138 mmol/L (136-145) 05/06/24 01:06 Potassium 4.1 mmol/L (3.5-5.1) 05/06/24 01:06 Chloride 99 mmol/L (98-107) 05/06/24 01:06 Carbon Dioxide 21 mmol/L (22-29) L 05/06/24 01:06 Anion Gap 22.1 (5-19) H 05/06/24 01:06 BUN 11 mg/dL (6-20) 05/06/24 01:06 Creatinine 0.9 mg/dL (0.7-1.2) 05/06/24 01:06 GFR Calculation 93.9 mL/min (90-130) 05/06/24 01:06 Glucose 87 mg/dL (65-115) 05/06/24 01:06 Calculated Osmolality 285 mOsm/kg (285-295) 05/06/24 01:06 Calcium 9.4 mg/dL (8.5-10.5) 05/06/24 01:06 Total Bilirubin 1.0 mg/dL (0.15-1.2) 05/06/24 01:06 AST 28 U/L (0-40) 05/06/24 01:06 ALT 49 U/L (0-41) H 05/06/24 01:06 Alkaline Phosphatase 84 U/L (40-130) 05/06/24 01:06 Troponin T Baseline < 6 ng/L (0-15) 05/06/24 01:06 Total Protein 7.2 g/dL (6.6-8.7) 05/06/24 01:06 Albumin 4.6 g/dL (3.5-5.2) 05/06/24 01:06 Globulin 2.6 g/dL (1.3-4.6) 05/06/24 01:06 Lipase 24 U/L (13-60) 05/06/24 01:06 Urine Color Yellow (Yellow) 05/06/24 01:54 Urine Appearance Clear (CLEAR) 05/06/24 01:54 Urine pH 6.0 (5-7) 05/06/24 01:54 Ur Specific [place] 1.009 (1.005-1.030) 05/06/24 01:54 Urine Protein Negative (Negative) 05/06/24 01:54 Urine Glucose (UA) Negative (Normal) 05/06/24 01:54 Urine Ketones 2+ (Negative) H 05/06/24 01:54 Urine Blood Trace (Negative) A 05/06/24 01:54 Urine Nitrate Negative (Negative) 05/06/24 01:54 Urine Bilirubin Negative (Negative) 05/06/24 01:54 Urine Urobilinogen 2.0 mg/dL (Negative) H 05/06/24 01:54 Ur Leukocyte Esterase Negative (Negative) 05/06/24 01:54 Urine RBC 0-2 /hpf (0-2) 05/06/24 01:54 Urine WBC 0-5 /hpf (0-5) 05/06/24 01:54 Ur Squamous Epith Cells 0-5 /hpf (0-5) 05/06/24 01:54 Amorphous Sediment Not Reportable 05/06/24 01:54 Urine Bacteria None seen /hpf (NONE) 05/06/24 01:54 Hyaline Casts 0-4 /lpf H 05/06/24 01:54 Urine Opiates Screen Negative ng/mL (Negative) 05/06/24 01:54 Ur Barbiturates Screen Negative ng/mL (Negative) 05/06/24 01:54 Ur Phencyclidine Scrn Negative ng/mL (Negative) 05/06/24 01:54 Ur Amphetamines Screen Negative ng/mL (Negative) 05/06/24 01:54 U Benzodiazepines Scrn Negative ng/mL (Negative) 05/06/24 01:54 Urine Cocaine Screen Negative ng/mL (Negative) 05/06/24 01:54 U Marijuana (THC) Screen Positive ng/mL (Negative) H 05/06/24 01:54 All radiology interpretation(s) finalized by discharge EKG Data EKG 1: I personally reviewed and interpreted this EKG as follows: EKG interpretation date: 05/06/24 EKG interpretation time: 01:22 Interpretation: nsr hr [address] or t wave abnormalities qrs 102 qtc 397 Discharge Plan Discharge Patient Disposition: Home Clinical Impression: Syncope Condition: Stable Prescriptions: No Action albuterol sulfate 90 mcg/actuation HFA aerosol inhaler 2 puff inhalation QID PRN (Reason: shortness of breath or wheezing) Qty: 8.5 0RF propranolol 10 mg tablet 10 mg PO BID Qty: 180 1RF lamotrigine [Lamictal] 25 mg tablet 25 mg PO BID 30 Days Qty: 180 1RF sertraline [Zoloft] 25 mg tablet 25 mg PO DAILY Qty: 90 1RF Discharge Orders: Discharge ED (Routine); Ordered 05/06/24 Ordered By: Alia West Referrals: Lashaun Herman DO [Physician] - Discharge Diet: Advance as tolerated Discharge Activity: Resume usual activity Patient Instructions: Syncope (ED) Coding Level of Care Code ED Credit Or Loans Officer for Isabella Johnson
[2024-05-06 01:32] VITALS: BP 129/77; PULSE 61; RESP 13; O2SAT 95
[2024-05-06] MEDS: sodium chloride 0.9% 1,000 ML 999 ML IV (01:44)
[2024-05-06 01:50] LABS: Alanine Aminotransferase 49 U/L (0-41); Albumin Level 4.6 g/dL (3.5-5.2); Alkaline Phosphatase 84 U/L (40-130); Anion Gap 22.1 (5-19); Aspartate Amino Transferase 28 U/L (0-40); Blood Urea Nitrogen 11 mg/dL (6-20); Calcium 9.4 mg/dL (8.5-10.5); Carbon Dioxide 21 mmol/L (22-29); Chloride 99 mmol/L (98-107); Globulin 2.6 g/dL (1.3-4.6); Glomerular Filtration Rate 93.9 mL/min (90-130); Glucose 87 mg/dL (65-115); Lipase 24 U/L (13-60); Osmolality Calculated 285 mOsm/kg (285-295); Potassium 4.1 mmol/L (3.5-5.1); Sodium 138 mmol/L (136-145); Total Protein 7.2 g/dL (6.6-8.7)
[2024-05-06 01:57] VITALS: BP 134/82; PULSE 72; RESP 18; O2SAT 97
[2024-05-06 02:02] LABS: Bilirubin Urine Negative (Negative); Blood Urine Trace (Negative); Glucose Urine UA Negative (Normal); Ketones Urine 2+ (Negative); Leukocyte Esterase Urine Negative (Negative); Nitrate Urine Negative (Negative); Protein Urine Negative (Negative); Specific Gravity, Urine 1.009 (1.005-1.030); Urine Appearance Clear (CLEAR); Urine Color Yellow (Yellow)
[2024-05-06 02:07] LABS: Add Urine Microscopic? YES; Bacteria Urine None Seen /hpf; Hyaline Casts Urine 0-4 /lpf; RBC Urine 0-2 /hpf (0-2); Squamous Epithelial Cell Urine 0-5 /hpf (0-5); WBC Urine 0-5 /hpf (0-5)
[2024-05-06 02:10] LABS: Amphetamines Screen Urine Negative (Negative); Barbiturates Screen Urine Negative (Negative); Benzodiazepines Screen Urine Negative (Negative); Cocaine Screen Urine Negative (Negative); Opiate Screen Urine Negative (Negative); PCP Screen Urine Negative (Negative); THC Screen Urine Positive (Negative)
--- NOTE | 2024-05-06 02:12 | ECG_ITS ---
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
--- NOTE | 2024-05-06 02:26 | CTR_ITS ---
PROCEDURE INFORMATION: Exam: CT Head Without Contrast Exam date and time: 05/06/2024 2:42 AM Age: 38 years old Clinical indication: Syncope and collapse; Patient HX: EMS arrival for syncopal episode TECHNIQUE: Imaging protocol: Computed tomography of the head without contrast. Radiation optimization: All CT scans at this facility use at least one of these dose optimization techniques: automated exposure control; mA and/or kV adjustment per patient size (includes targeted exams where dose is matched to clinical indication); or iterative reconstruction. COMPARISON: No relevant prior studies available. RADIATION DOSE METRICS: Total DLP (mGy-cm): 1084.8 FINDINGS: Brain: No acute intracranial hemorrhage or mass effect. No definite acute infarct by CT. MRI would be more sensitive/specific for detection, as clinically directed. Cerebral ventricles: Ventricle size is normal for age. Paranasal sinuses: Included paranasal sinuses are essentially clear. Mastoid air cells: No significant acute finding. Bones: No definite acute skull fracture. Soft tissues: No significant acute finding. CT/CT head wo con* [id number] IMPRESSION: 1. No acute intracranial hemorrhage or mass effect. 2. No definite acute infarct by CT, see above. 3. Other findings discussed above.
[2024-05-06 02:46] LABS: Troponin(5th) Baseline < 6 ng/L (0-15)
[2024-05-06 03:33] VITALS: BP 126/76; PULSE 87; RESP 15; O2SAT 98
== END 2024-05-06 03:35 | disposition home or self-care (01) ==
PROVIDERS: Emergency Provider Emergency Medicine
DX: R55 Syncope and collapse (principal); Z72.0 Tobacco use
CPT/HCPCS: 70450; 80053; 80306; 81001; 83690; 84484; 85025; 93005; 96360; 96361; 99285; J7030

== ENCOUNTER 2024-06-22 20:56 | Emergency (ER) | payer BC, SELFPAY ==
--- NOTE | 2024-06-22 21:00 | XRR_ITS ---
PROCEDURE INFORMATION: Exam: XR Chest Exam date and time: 06/22/2024 10:19 PM Age: 38 years old Clinical indication: Chest pressure; Patient HX: Chest pain; Alpha gal TECHNIQUE: Imaging protocol: Radiologic exam of the chest. Views: 1 view. COMPARISON: CR XR chest 1V portable [id number] 03/24/2023 2:58 AM FINDINGS: Lungs: Unremarkable. No consolidation. Pleural spaces: Unremarkable. No pleural effusion. No pneumothorax. Heart/Mediastinum: Unremarkable. No cardiomegaly. Bones/joints: Unremarkable. XR/XR chest 1V portable [id number] IMPRESSION: No acute findings.
[2024-06-22 21:02] VITALS: BP 120/77; PULSE 77; RESP 16; TEMP 36.3; O2SAT 99; BMI 28.0
--- NOTE | 2024-06-22 21:04 | ECG_ITS ---
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 Measurements Intervals [place] Rate: 59 P: 33 DC: 165 QRS: -12 QRSD: 107 T: 40 QT: 396 QTc: 395 Interpretive Statements SINUS BRADYCARDIA Compared to ECG 05/06/2024 02:24:04 Sinus rhythm no longer present Electronically Signed On 06-26-2024 00:00:33 PRESCHOOL DISABILITY TEACHER by Ann-Marie Hull M.D. [id number]
[2024-06-22 21:36] LABS: Basophils # 0.1 10^3/uL (0.0-0.1); Basophils % 1.3 %; Eosinophils # 0.3 10^3/uL (0.0-0.8); Eosinophils % 3.9 %; Hematocrit 54.2 % (37-53); Lymphocytes # 3.1 10^3/uL (0.8-4.8); Lymphocytes % 40.6 %; Mean Corpuscular HGB Conc 33.2 g/dL (30-55); Mean Corpuscular Hemoglobin 30.1 pg (27-33); Mean Corpuscular Volume 90.5 fl (82-101); Mean Platelet Volume 13.5 fL (7.4-10.4); Monocytes # 0.8 10^3/uL (0.2-0.9); Monocytes % 10.1 %; Neutrophils % 43.8 %; Nucleated Red Blood Cells % 0 %; Platelet Count 215 10^3/cmm (157-399); Red Blood Count 5.99 10^6/uL (3.85-5.65); Red Cell Distribution Width 13.2 % (12.1-15.1); White Blood Count 7.53 10^3/uL (3.29-11.43)
[2024-06-22 21:55] LABS: Troponin(5th) Baseline < 6 ng/L (0-15)
[2024-06-22 21:57] LABS: Alanine Aminotransferase 41 U/L (0-41); Albumin Level 4.6 g/dL (3.5-5.2); Alkaline Phosphatase 90 U/L (40-130); Anion Gap 17.3 (5-19); Aspartate Amino Transferase 24 U/L (0-40); Blood Urea Nitrogen 13 mg/dL (6-20); Calcium 9.3 mg/dL (8.5-10.5); Carbon Dioxide 23 mmol/L (22-29); Chloride 105 mmol/L (98-107); Creatinine Clr Calc Pharmacy 138.5215; Globulin 2.2 g/dL (1.3-4.6); Glomerular Filtration Rate 93.9 mL/min (90-130); Glucose 86 mg/dL (65-115); Lipase 51 U/L (13-60); Osmolality Calculated 291 mOsm/kg (285-295); Potassium 4.3 mmol/L (3.5-5.1); Sodium 141 mmol/L (136-145); Total Bilirubin 0.5 mg/dL (0.15-1.2); Total Protein 6.8 g/dL (6.6-8.7)
[2024-06-22 22:45] VITALS: BP 134/96; PULSE 51; O2SAT 93
[2024-06-22 22:57] LABS: Troponin 5 2HR Delta 0.00001 ABS# (0-10)
[2024-06-22 23:00] VITALS: BP 141/95; BP 145/84; PULSE 49; O2SAT 97
--- NOTE | 2024-06-22 23:00 | ECG_ITS ---
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
[2024-06-22 23:15] VITALS: BP 141/95
--- NOTE | 2024-06-22 23:20 | CTR_ITS ---
PROCEDURE INFORMATION: Exam: CT Head Without Contrast Exam date and time: 06/22/2024 11:29 PM Age: 38 years old Clinical indication: Syncope and collapse; Patient HX: Syncopal episode TECHNIQUE: Imaging protocol: Computed tomography of the head without contrast. Radiation optimization: All CT scans at this facility use at least one of these dose optimization techniques: automated exposure control; mA and/or kV adjustment per patient size (includes targeted exams where dose is matched to clinical indication); or iterative reconstruction. COMPARISON: CT head wo con* [id number] 05/06/2024 2:42 AM RADIATION DOSE METRICS: Total DLP (mGy-cm): 1065.88 FINDINGS: Brain: Normal. No hemorrhage. Unremarkable white matter. No mass effect. Cerebral ventricles: No ventriculomegaly. Paranasal sinuses: Mucosal thickening of the bilateral ethmoid sinuses. Mastoid air cells: Visualized mastoid air cells are well aerated. Bones: Unremarkable. No acute fracture. Soft tissues: Unremarkable. CT/CT head wo con* [id number] IMPRESSION: No acute intracranial abnormality.
[2024-06-23] VITALS (9 sets, daily range): BP systolic 109–132; BP diastolic 65–92; PULSE 44–65; RESP 16; O2SAT 94–98
[2024-06-23 00:35] LABS: Bilirubin Urine Negative (Negative); Blood Urine Negative (Negative); Glucose Urine UA Negative (Normal); Ketones Urine Trace (Negative); Leukocyte Esterase Urine Negative (Negative); Nitrate Urine Negative (Negative); Protein Urine Negative (Negative); Urine Appearance Clear (CLEAR); Urine Color Yellow (Yellow); pH Urine 5.5 (5-7)
--- NOTE | 2024-06-23 00:35 | ED_ITS ---
Documented by User: MILES Cutler 06/23/24 00:55 HPI - Chest Pain 2 General: Chief Complaint: Chest Pain Stated Complaint: cp Time Seen by Provider: 06/22/24 22:14 History of Present Illness: Justifiable is a 38-year-old man that presents to the emergency department with complaints of syncope, near syncope chest pain and fatigue. Patient reports onset of symptoms just prior to his arrival here. 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 He went in and later in the evening he was found by his nursing staff unconscious sitting at his desk. He was aroused and contacted his partner who brought him to the emergency department. Patient reports intermittent chest pain, shortness of breath, anxiousness, and just not feeling right. He has a primary care doctor who he sees routinely. Patient's medical history includes migraine, bipolar anxiety/depression, and is every day smoker. Related Data Previous Rx's Medication Instructions Recorded albuterol sulfate 90 mcg/actuation 2 puff inhalation QID PRN 01/31/23 aerosol inhaler shortness of breath or wheezing #8.5 grams lamotrigine 25 mg tablet (Lamictal) 25 mg PO BID 30 days #180 tabs 05/02/23 propranolol 10 mg tablet 10 mg PO BID #180 tabs 05/02/23 sertraline 25 mg tablet (Zoloft) 25 mg PO DAILY #90 tabs 05/02/23 Allergies Allergy/AdvReac Type Severity Reaction Status Date / Time No Known Allergies Allergy Verified 05/02/23 14:48 Review of Systems 2 General: Reports: 10 or more systems reviewed and unremarkable except in HPI and below PFSH ED 2 PFSH: Medical History History of asthma History of bipolar disorder Hasn't been on medication for about 7 years. History of environmental allergies Surgical History No pertinent past surgical history Family History Father , over dose No problems noted. Mother Hemochromatosis Grandmother No problems noted. Grandmother Cancer lymphoma CAD (coronary artery disease) Diabetes Social History Smoking and tobacco/nicotine status: current every day tobacco/nicotine user Physical Exam 2 Const: COMMON NORMALS: no acute distress, patient oriented x3 and alert G ENERAL APPEARANCE: cooperative ORIENTATION/CONSCIOUSNESS: Yes awake, Yes oriented to person, Yes oriented to place and Yes oriented to time Neck/C-Spine: COMMON NORMALS: full ROM GENERAL: Yes normal visual inspection Chest: COMMONS NORMALS: normal inspection of the chest Breast/axilla inspection: Yes no chest deformity, asymmetry, normal contours, no nodules, masses, tenderness Resp: COMMON NORMALS: normal respiratory effort, No retractions, No use of accessory muscles and clear to auscultation bilaterally EFFORT & INSPECTION: Yes able to speak in complete sentences and Yes symmetric chest movement A USCULTATION: clear to auscultation bilaterally Cardio: COMMON NORMALS: regular rate, regular rhythm and Peripheral pulses 2+ throughout RATE: regular rate RHYTHM: regular rhythm PERIPHERAL PULSES: Peripheral pulses 2+ throughout GI: COMMON NORMALS: Normal to inspection, nondistended, normoactive bowel sounds present, Soft to palpation, non-tender and No hepatosplenomegaly present INSPECTION: Yes normal to inspection AUSCULTATION: Yes normoactive bowel sounds PALPATION: Yes Soft to palpation and Yes No hepatosplenomegaly present RECTAL EXAM: Yes deferred Extremity: COMMON NORMALS: normal to inspection GENERAL: Yes normal exam except as noted Neuro: COMMON NORMALS: patient oriented x3 SENSORIUM/ORIENTATION: Yes alert, Yes oriented to person, Yes oriented to place and Yes oriented to time CRANIAL NERVES: Yes CN normal except as noted Psych: COMMON NORMALS: mental status grossly normal, Normal thought process present, cooperative, activity/motor behavior normal, denies homicidal ideation and denies suicidal ideation THOUGHT PROCESS: Normal thought process present Skin: COMMON NORMALS: no rashes or lesions noted, no wounds and turgor normal GENERAL SKIN EXAM: no rashes or lesions noted and turgor normal Course 2 Vital Signs: Vital signs: Vital Signs Temperature 97.4 F L 06/22/24 21:02 Pulse Rate 65 06/23/24 00:57 Respiratory Rate 16 06/23/24 00:57 Blood Pressure 126/91 06/23/24 01:15 Pulse Oximetry 98 06/23/24 01:00 Oxygen Delivery Me thod Room Air 06/23/24 00:00 MDM - Chest Pain Medical Decision Making Patient was evaluated in the emergency department today for plaints of syncope, anxiety. Upon his arrival to the emergency department, patient was anxious and expressed frustration that being here in the emergency department and not trusting staff or providers here. Patient states that he has been evaluated numerous times and feels that he is never heard or taken seriously. Patient and I had a recent really good conversation about expectations here in the emergency department. Due to his syncope patient and I discussed reasonable expectations that included chest x-ray, CT of the head, EKGs, laboratory evaluation including urinalysis. Patient underwent a chest x-ray which revealed no acute cardiopulmonary findings. No infiltrates, opacities, cardiomegaly. CT head unremarkable. If patient continues to have these episodes an MRI might be warranted. Patient also underwent a EKG which revealed sinus bradycardia to sinus rhythm without ectopy, ST elevation or abnormal T wave inversion. Laboratory evaluation included a CBC which revealed no leukocytosis or anemias. He does have an elevated H&H which may be linked to a number of factors including potential sleep apnea, smoking, prior cardiac issues. His chemistry panel reveals no electrolyte abnormalities, renal dysfunction liver dysfunction. Troponin is within normal limits his 2-hour delta was unchanged. Lipase was 51. Urinalysis was obtained and revealed no evidence of a urinary tract infection. Patient's urine drug screen was only positive for marijuana. At this time no further diagnostics are warranted. There is a number of potential causes for his syncope. URI, vasovagal, orthostatic. I did obtain orthostatic vital signs which were unremarkable. Lab Data 06/22/24 20:42 06/22/24 20:42 Radiology Impressions Chest X-Ray 06/22/24 21:00 IMPRESSION: No acute findings. Head CT 06/22/24 23:20 IMPRESSION: No acute intracranial abnormality. Laboratory Results WBC 7.53 10^3/uL (3.29-11.43) 06/22/24 20:42 RBC 5.99 10^6/uL (3.85-5.65) H 06/22/24 20:42 Hgb 18.00 g/dL (11.27-16.99) H 06/22/24 20:42 Hct 54.2 % (37-53) H 06/22/24 20:42 MCV 90.5 fl (82-101) 06/22/24 20:42 MCH 30.1 pg (27-33) 06/22/24 20: MCHC 33.2 g/dL (30-55) 06/22/24 20:42 RDW 13.2 % (12.1-15.1) 06/22/24 20:42 Plt Count 215 10^3/cmm (157-399) 06/22/24 20:42 MPV 13.5 fL (7.4-10.4) H 06/22/24 20:42 Neut % (Auto) 43.8 % 06/22/24 20:42 Lymph % (Auto) 40.6 % 06/22/24 20:42 [place] % (Auto) 10.1 % 06/22/24 20:42 Eos % (Auto) 3.9 % 06/22/24 20:42 Baso % (Auto) 1.3 % 06/22/24 20:42 Neut # (Auto) 3.30 10^3/uL (1.8-7.7) 06/22/24 20:42 Lymph # (Auto) 3.1 10^3/uL (0.8-4.8) 06/22/24 20:42 [place] # (Auto) 0.8 10^3/uL (0.2-0.9) 06/22/24 20:42 Eos # (Auto) 0.3 10^3/uL (0.0-0.8) 06/22/24 20:42 Baso # (Auto) 0.1 10^3/uL (0.0-0.1) 06/22/24 20:42 Nucleated RBC % (auto) 0 % 06/22/24 20: Nucleated RBCs # 0.0 /100WBC 06/22/24 20:42 Sodium 141 mmol/L (136-145) 06/22/24 20:42 Potassium 4.3 mmol/L (3.5-5.1) 06/22/24 20:42 Chloride 105 mmol/L (98-107) 06/22/24 20:42 Carbon Dioxide 23 mmol/L (22-29) 06/22/24 20:42 Anion Gap 17.3 (5-19) 06/22/24 20:42 BUN 13 mg/dL (6-20) 06/22/24 20:42 Creatinine 0.9 mg/dL (0.7-1.2) 06/22/24 20:42 GFR Calculation 93.9 mL/min (90-130) 06/22/24 20:42 Glucose 86 mg/dL (65-115) 06/22/24 20:42 Calculated Osmolality 291 mOsm/kg (285-295) 06/22/24 20:42 Calcium 9.3 mg/dL (8.5-10.5) 06/22/24 20:42 Total Bilirubin 0.5 mg/dL (0.15-1.2) 06/22/24 20:42 AST 24 U/L (0-40) 06/22/24 20:42 ALT 41 U/L (0-41) 06/22/24 20:42 Alkaline Phosphatase 90 U/L (40-130) 06/22/24 20:42 Troponin T Baseline < 6 ng/L (0-15) 06/22/24 20:42 Troponin T 120 Minute 6.00 ng/L (0-15) 06/22/24 22:26 Delta Troponin T 0.77813 ABS# (0-10) 06/22/24 22:26 Total Protein 6.8 g/dL (6.6-8.7) 06/22/24 20:42 Albumin 4.6 g/dL (3.5-5.2) 06/22/24 20:42 Globulin 2.2 g/dL (1.3-4.6) 06/22/24 20:42 Lipase 51 U/L (13-60) 06/22/24 20:42 Urine Color Yellow (Yellow) 06/23/24 00:18 Urine Appearance Clear (CLEAR) 06/23/24 00:18 Urine pH 5.5 (5-7) 06/23/24 00:18 Ur Specific [place] 1.033 (1.005-1.030) H 06/23/24 00:18 Urine Protein Negative (Negative) 06/23/24 00:18 Urine Glucose (UA) Negative (Normal) 06/23/24 00:18 Urine Ketones Trace (Negative) 06/23/24 00:18 Urine Blood Negative (Negative) 06/23/24 00:18 Urine Nitrate Negative (Negative) 06/23/24 00:18 Urine Bilirubin Negative (Negative) 06/23/24 00:18 Urine Urobilinogen 1.0 mg/dL (Negative) 06/23/24 00:18 Ur Leukocyte Esterase Negative (Negative) 06/23/24 00:18 Urine RBC 3-5 /hpf (0-2) 06/23/24 00:18 Urine WBC 0-5 /hpf (0-5) 06/23/24 00:18 Ur Squamous Epith Cells 0-5 /hpf (0-5) 06/23/24 00:18 Amorphous Sediment Not Reportable 06/23/24 00:18 Urine Bacteria None seen /hpf (NONE) 06/23/24 00:18 Hyaline Casts 0.40 /lpf 06/23/24 00:18 Urine Opiates Screen Negative ng/mL (Negative) 06/23/24 00:18 Ur Barbiturates Screen Negative ng/mL (Negative) 06/23/24 00:18 Ur Phencyclidine Scrn Negative ng/mL (Negative) 06/23/24 00:18 Ur Amphetamines Screen Negative ng/mL (Negative) 06/23/24 00:18 U Benzodiazepines Scrn Negative ng/mL (Negative) 06/23/24 00:18 Urine Cocaine Screen Negative ng/mL (Negative) 06/23/24 00:18 U Marijuana (THC) Screen Positive ng/mL (Negative) H 06/23/24 00:18 All radiology interpretation(s) finalized by discharge Discharge Plan Discharge Patient Disposition: Home Clinical Impression: Syncope, vasovagal Condition: Stable Prescriptions: No Action albuterol sulfate 90 mcg/actuation HFA aerosol inhaler 2 puff inhalation QID PRN (Reason: shortness of breath or wheezing) Qty: 8.5 0RF propranolol 10 mg tablet 10 mg PO BID Qty: 180 1RF lamotrigine [Lamictal] 25 mg tablet 25 mg PO BID 30 Days Qty: 180 1RF sertraline [Zoloft] 25 mg tablet 25 mg PO DAILY Qty: 90 1RF Discharge Orders: Discharge ED (Routine); Ordered 06/23/24 Ordered By: Hannah Merlos Referrals: Topher Mosquera DO [Primary Care Provider] - 1-3 days Discharge Diet: Advance as tolerated Discharge Activity: Resume usual activity Patient Instructions: Syncope (ED), Pain Management Activity Restrictions/Additional Instructions: Here in the emergency department she underwent diagnostic evaluation to evaluate cardiac function as well as potential causes for syncope. CT head negative Chest x-ray negative CBC largely unremarkable. He did have that elevated H&H which has numerous causes. You need to be evaluated by your primary doctor further for any questions regarding the H&H. Chemistry panel unremarkable. Troponin?cardiac enzyme within normal limits. We rechecked it at 2 hours and it was still normal. Lipase which looks at pancreatic function was normal Urinalysis showed no evidence of urinary tract infection Urine drug screen largely negative. Orthostatic vital signs normal While this evaluation ruled out several things there are number of potential causes for syncope that I just cannot answer in a short period of time in the emergency department. This needs further evaluation. Please follow-up with Dr. Mosquera in the next 3 to 5 days. Call Monday for an appointment. If you feel you are getting worse or you are not getting better, I will be happy to be back here in the emergency Coding Level of Care Code ED Material Distributor for Chg Fwd Documented by User: Og Rogers DO 06/23/24 03:04 HPI - Chest Pain 2 General: Chief Complaint: Chest Pain Stated Complaint: cp Time Seen by Provider: 06/22/24 22:14 Related Data Previous Rx's Medication Instructions Recorded albuterol sulfate 90 mcg/actuation 2 puff inhalation QID PRN 01/31/23 aerosol inhaler shortness of breath or wheezing #8.5 grams lamotrigine 25 mg tablet (Lamictal) 25 mg PO BID 30 days #180 tabs 05/02/23 propranolol 10 mg tablet 10 mg PO BID #180 tabs 05/02/23 sertraline 25 mg tablet (Zoloft) 25 mg PO DAILY #90 tabs 05/02/23 Allergies Allergy/AdvReac Type Severity Reaction Status Date / Time No Known Allergies Allergy Verified 05/02/23 14:48 [facility] ED 2 PFSH: Medical History History of asthma History of bipolar disorder Hasn't been on medication for about 7 years. History of environmental allergies Surgical History No pertinent past surgical history Family History Father , over dose No problems noted. Mother Hemochromatosis Grandmother No problems noted. Grandmother Cancer lymphoma CAD (coronary artery disease) Diabetes Social History Smoking and tobacco/nicotine status: current every day tobacco/nicotine user Course 2 Vital Signs: Vital signs: Vital Signs Temperature 97.4 F L 06/22/24 21:02 Pulse Rate 65 06/23/24 00:57 Respiratory Rate 16 06/23/24 00:57 Blood Pressure 126/91 06/23/24 01:15 Pulse Oximetry 98 06/23/24 01:00 Oxygen Delivery Me thod Room Air 06/23/24 00:00 MDM - Chest Pain Medical Decision Making Patient was evaluated in the emergency department today for plaints of syncope, anxiety. Upon his arrival to the emergency department, patient was anxious and expressed frustration that being here in the emergency department and not trusting staff or providers here. Patient states that he has been evaluated numerous times and feels that he is never heard or taken seriously. Patient and I had a recent really good conversation about expectations here in the emergency department. Due to his syncope patient and I discussed reasonable expectations that included chest x-ray, CT of the head, EKGs, laboratory evaluation including urinalysis. Patient underwent a chest x-ray which revealed no acute cardiopulmonary findings. No infiltrates, opacities, cardiomegaly. CT head unremarkable. If patient continues to have these episodes an MRI might be warranted. Patient also underwent a EKG which revealed sinus bradycardia to sinus rhythm without ectopy, ST elevation or abnormal T wave inversion. Laboratory evaluation included a CBC which revealed no leukocytosis or anemias. He does have an elevated H&H which may be linked to a number of factors including potential sleep apnea, smoking, prior cardiac issues. His chemistry panel reveals no electrolyte abnormalities, renal dysfunction liver dysfunction. Troponin is within normal limits his 2-hour delta was unchanged. Lipase was 51. Urinalysis was obtained and revealed no evidence of a urinary tract infection. Patient's urine drug screen was only positive for marijuana. At this time no further diagnostics are warranted. There is a number of potential causes for his syncope. URI, vasovagal, orthostatic. I did obtain orthostatic vital signs which were unremarkable. This patient was originally seen by PORFIRIO Osorio.? I agree with her history, evaluation, and treatment. Lab Data 06/22/24 20:42 06/22/24 20:42 Radiology Impressions Chest X-Ray 06/22/24 21:00 IMPRESSION: No acute findings. Head CT 06/22/24 23:20 IMPRESSION: No acute intracranial abnormality. Laboratory Results WBC 7.53 10^3/uL (3.29-11.43) 06/22/24 20:42 RBC 5.99 10^6/uL (3.85-5.65) H 06/22/24 20:42 Hgb 18.00 g/dL (11.27-16.99) H 06/22/24 20:42 Hct 54.2 % (37-53) H 06/22/24 20:42 MCV 90.5 fl (82-101) 06/22/24 20:42 MCH 30.1 pg (27-33) 06/22/24 20:42 MCHC 33.2 g/dL (30-55) 06/22/24 20:42 RDW 13.2 % (12.1-15.1) 06/22/24 20:42 Plt Count 215 10^3/cmm (157-399) 06/22/24 20:42 MPV 13.5 fL (7.4-10.4) H 06/22/24 20:42 Neut % (Auto) 43.8 % 06/22/24 20:42 Lymph % (Auto) 40.6 % 06/22/24 20:42 [place] % (Auto) 10.1 % 06/22/24 20:42 Eos % (Auto) 3.9 % 06/22/24 20:42 Baso % (Auto) 1.3 % 06/22/24 20:42 Neut # (Auto) 3.30 10^3/uL (1.8-7.7) 06/22/24 20:42 Lymph # (Auto) 3.1 10^3/uL (0.8-4.8) 06/22/24 20:42 [place] # (Auto) 0.8 10^3/uL (0.2-0.9) 06/22/24 20:42 Eos # (Auto) 0.3 10^3/uL (0.0-0.8) 06/22/24 20:42 Baso # (Auto) 0.1 10^3/uL (0.0-0.1) 06/22/24 20:42 Nucleated RBC % (auto) 0 % 06/22/24 20:42 Nucleated RBCs # 0.0 /100WBC 06/22/24 20:42 Sodium 141 mmol/L (136-145) 06/22/24 20:42 Potassium 4.3 mmol/L (3.5-5.1) 06/22/24 20:42 Chloride 105 mmol/L (98-107) 06/22/24 20:42 Carbon Dioxide 23 mmol/L (22-29) 06/22/24 20:42 Anion Gap 17.3 (5-19) 06/22/24 20:42 BUN 13 mg/dL (6-20) 06/22/24 20:42 Creatinine 0.9 mg/dL (0.7-1.2) 06/22/24 20:42 GFR Calculation 93.9 mL/min (90-130) 06/22/24 20:42 Glucose 86 mg/dL (65-115) 06/22/24 20:42 Calculated Osmolality 291 mOsm/kg (285-295) 06/22/24 20:42 Calcium 9.3 mg/dL (8.5-10.5) 06/22/24 20:42 Total Bilirubin 0.5 mg/dL (0.15-1.2) 06/22/24 20:42 AST 24 U/L (0-40) 06/22/24 20:42 ALT 41 U/L (0-41) 06/22/24 20:42 Alkaline Phosphatase 90 U/L (40-130) 06/22/24 20:42 Troponin T Baseline < 6 ng/L (0-15) 06/22/24 20:42 Troponin T 120 Minute 6.00 ng/L (0-15) 06/22/24 22:26 Delta Troponin T 0.38074 ABS# (0-10) 06/22/24 22:26 Total Protein 6.8 g/dL (6.6-8.7) 06/22/24 20:42 Albumin 4.6 g/dL (3.5-5.2) 06/22/24 20:42 Globulin 2.2 g/dL (1.3-4.6) 06/22/24 20:42 Lipase 51 U/L (13-60) 06/22/24 20:42 Urine Color Yellow (Yellow) 06/23/24 00:18 Urine Appearance Clear (CLEAR) 06/23/24 00:18 Urine pH 5.5 (5-7) 06/23/24 00:18 Ur Specific [place] 1.033 (1.005-1.030) H 06/23/24 00:18 Urine Protein Negative (Negative) 06/23/24 00:18 Urine Glucose (UA) Negative (Normal) 06/23/24 00:18 Urine Ketones Trace (Negative) 06/23/24 00:18 Urine Blood Negative (Negative) 06/23/24 00:18 Urine Nitrate Negative (Negative) 06/23/24 00:18 Urine Bilirubin Negative (Negative) 06/23/24 00:18 Urine Urobilinogen 1.0 mg/dL (Negative) 06/23/24 00:18 Ur Leukocyte Esterase Negative (Negative) 06/23/24 00:18 Urine RBC 3-5 /hpf (0-2) 06/23/24 00:18 Urine WBC 0-5 /hpf (0-5) 06/23/24 00:18 Ur Squamous Epith Cells 0-5 /hpf (0-5) 06/23/24 00:18 Amorphous Sediment Not Reportable 06/23/24 00:18 Urine Bacteria None seen /hpf (NONE) 06/23/24 00:18 Hyaline Casts 0.40 /lpf 06/23/24 00:18 Urine Opiates Screen Negative ng/mL (Negative) 06/23/24 00:18 Ur Barbiturates Screen Negative ng/mL (Negative) 06/23/24 00:18 Ur Phencyclidine Scrn Negative ng/mL (Negative) 06/23/24 00:18 Ur Amphetamines Screen Negative ng/mL (Negative) 06/23/24 00:18 U Benzodiazepines Scrn Negative ng/mL (Negative) 06/23/24 00:18 Urine Cocaine Screen Negative ng/mL (Negative) 06/23/24 00:18 U Marijuana (THC) Screen Positive ng/mL (Negative) H 06/23/24 00:18 Discharge Plan Discharge Patient Disposition: Home Clinical Impression: Syncope, vasovagal Condition: Stable Prescriptions: No Action albuterol sulfate 90 mcg/actuation HFA aerosol inhaler 2 puff inhalation QID PRN (Reason: shortness of breath or wheezing) Qty: 8.5 0RF propranolol 10 mg tablet 10 mg PO BID Qty: 180 1RF lamotrigine [Lamictal] 25 mg tablet 25 mg PO BID 30 Days Qty: 180 1RF sertraline [Zoloft] 25 mg tablet 25 mg PO DAILY Qty: 90 1RF Discharge Orders: Discharge ED (Routine); Ordered 06/23/24 Ordered By: Hannah Merlos Referrals: Topher Mosquera DO [Primary Care Provider] - 1-3 days Discharge Diet: Advance as tolerated Discharge Activity: Resume usual activity Patient Instructions: Syncope (ED), Pain Management Activity Restrictions/Additional Instructions: Here in the emergency department she underwent diagnostic evaluation to evaluate cardiac function as well as potential causes for syncope. CT head negative Chest x-ray negative CBC largely unremarkable. He did have that elevated H&H which has numerous causes. You need to be evaluated by your primary doctor further for any questions regarding the H&H. Chemistry panel unremarkable. Troponin?cardiac enzyme within normal limits. We rechecked it at 2 hours and it was still normal. Lipase which looks at pancreatic function was normal Urinalysis showed no evidence of urinary tract infection Urine drug screen largely negative. Orthostatic vital signs normal While this evaluation ruled out several things there are number of potential causes for syncope that I just cannot answer in a short period of time in the emergency department. This needs further evaluation. Please follow-up with Dr. Mosquera in the next 3 to 5 days. Call Monday for an appointment. If you feel you are getting worse or you are not getting better, I will be happy to be back here in the emergency Coding Level of Care Code ED Material Distributor for Isabella Johnson
[2024-06-23 00:40] LABS: Add Urine Microscopic? YES; Bacteria Urine None Seen /hpf; Squamous Epithelial Cell Urine 0-5 /hpf (0-5); WBC Urine 0-5 /hpf (0-5)
[2024-06-23 00:42] LABS: Amphetamines Screen Urine Negative (Negative); Barbiturates Screen Urine Negative (Negative); Benzodiazepines Screen Urine Negative (Negative); Cocaine Screen Urine Negative (Negative); Opiate Screen Urine Negative (Negative); PCP Screen Urine Negative (Negative); THC Screen Urine Positive (Negative)
[2024-06-23 00:45] LABS: Specific Gravity, Urine 1.033 (1.005-1.030)
== END 2024-06-23 01:03 | disposition home or self-care (01) ==
PROVIDERS: Emergency Medicine; Emergency Provider Nurse Practitioner; PCP Electrodiagnostic Medicine
DX: R55 Syncope and collapse (principal); Z72.0 Tobacco use
CPT/HCPCS: 36415; 70450; 71045; 80053; 80306; 81001; 83690; 84484; 85025; 93005; 99285

== ENCOUNTER 2024-11-07 14:22 | Outpatient (CLI) | payer BC, SELFPAY ==
[2024-11-07 15:19] LABS: Free T4 Free Thyroxine 1.07 ng/dL (0.82-1.77); Magnesium 2.1 mg/dL (1.7-2.3); Thyroid Stimulating Hormone 0.43 uIU/mL (0.27-4.20)
[2024-11-07 15:27] LABS: Folate Level 4.7 ng/mL (4.5-32.2)
[2024-11-07 16:21] LABS: 25 Hydroxy Vitamin D 12 ng/mL (30-100); Vitamin B12 661 pg/mL (232-1245)
== END 2024-11-07 14:23 | disposition home or self-care (01) ==
PROVIDERS: PCP Electrodiagnostic Medicine; Visit Provider Psychiatry & Neurology Neurology
DX: R56.9 Unspecified convulsions (principal)
CPT/HCPCS: 36415; 82306; 82607; 82746; 83735; 83921; 84439; 84443

== ENCOUNTER 2024-12-13 12:59 | Inpatient (IN) | payer BC, SELFPAY ==
--- OUTSIDE RECORDS SUMMARY | 2015-07-03 04:19 | XMS_ITS | Continuity of Care Document ---
Author Organization [facility] Address [address] [place] [id number] Phone Care Team Providers Care Firer Low Pressure Name Role Phone Unavailable Unavailable Unavailable Allergies, Adverse Reactions, Alerts Substance Reaction Status Criticality No Known Allergies Active No Inform ation Medications Medication Instructions Dosage Effective Dates (start - stop) Status Comments ibuprofen 600 mg tablet take 1 tablet by oral route 3 times every day with food as needed 600 MG - Active Fungoid Tincture 2 % topical apply by topical route 2 times every day a thin layer to the affected area(s) in the morning and evening 0.00 - Active Qvar 80 mcg/actuation Metered Aerosol oral inhaler inhale 2 puff by inhalation route 2 times every day - Active albuterol sulfate HFA 90 mcg/actuation aerosol inhaler inhale 2 puff by inhalation route every 4 - 6 hours as needed - Active Claritin 10 mg tablet take 1 tablet by o ral route every day 10 MG - Active Zoloft 100 mg tablet take 1 tablet by or al route every day 100 MG - Active Procedures Procedure Date IMMUNIZATION ADMIN TDAP VACCINE >7 IM OFFICE/OUTPATIENT VISIT, NEW Advance Directives Directive Yes / No Effective Date File Name No Information Encounters Encounter Description Practice Location Reason(s) For Visit Diagnoses Date Provider Providers Copied on Encounter [facility] [employer] [facility], [address] [place] [address], [id number], [place] tel:[phone] [facility] [place] [facility] Huynh No Information 6 No Information OFFICE/OUTPA TIENT VISIT, [facility], [address], [place], [place], [id number], [place] tel:[phone] [facility] Anxiety (chief complaint) Musculoske letal pain (chief complaint) ESTABLISH CARE (chief complaint) Anxiety and depressionOverwei ghtShoulder pain, bilateralElbow painVaccine for diphtheria-tetanu s-pertussis, combined 5 Geoffrey Pedraza. [address] [facility], [address], [place], [address], [place]. [phone] Family History Family Member Type Diagnosis Age At Onset Mother Problem (finding) Alive and well Mother Problem (finding) Hypertension Mother Problem (finding) Bipolar disorder Immunizations Vaccine Date Status Comments Tdap administered [facility] Record Payers Payer name Insurance type Covered constitution party ID Authoriza tijesus(s) [facility] [id number] [employer]rap Around [facility] [id number] [facility] [id number] [employer] [facility] [id number] Social History Type Description Quantity Date Captured Comments Sex Male Smoking Status No Information Chief Complaint And Reason For Visit No Information Plan Of Treatment Date Type Action Status Goal Lifestyle education nadeenin g diet completed Referral Ordered: X-RAY EXAM OF ELBOW Bilateral ordered Referral Ordered: X-RAY EXAM OF SHOULDER Bilateral ordered History Of Present Illness Encounter Date Complaint History Of Prese nt Illness Anxiety This is an initi al visit. The patient presents with anxious/fearful thoughts, depressed mood, difficulty falling asleep, difficulty staying asleep, diminished interest or pleasure, excessive worry, fatigue, feelings of guilt, paranoia, poor judgment, racing thoughts and restlessness but denies thoughts of or suicide. Additional information: Patient has been out of Zoloft for 5 months. He states that even when he was taking Zoloft he was still having anxieties and requesting another med that will help. ESTABLISH CARE Musculoskeletal pain Onset: 6 mo nths ago. Location: bilateral shoulder. The pain radiates to the Additional information: Pt states feels pain in the joints of bilateral shoulders and elbows. Instructions Date Instruction Additional Infor arabellaadelaida Tdap given today. Related to Vac cine for sottdpafry-lmjdzjk-zxyuhkwla, combined X ray elbows bilater al. Ibuprofen 600mg TID prn w/ food. Heat/Ice. OTC creams like bengay or aspercreme. Related to Elbow pain X ray shoulders bila teral. Ibuprofen 600mg TID prn w/ food. Heat/Ice. OTC creams like bengay or aspercreme. Related to Shoulder pain, bilateral Counselled on diet m odification and exercise. Lipids, HgbA1c. Related to Overweight Patient has been out of Zoloft for 5 months. Restart Zoloft 100mg daily. Obtain labs. Related to Anxiety and depression Giving encouragement to exercise Related to Overweight Lifestyle education regarding di et Related to Overweight Assessments Type Assessment Date No Information
[2024-12-13 13:02] VITALS: BP 143/82; PULSE 116; RESP 20; TEMP 36.5; O2SAT 97; BMI 25.7
--- OUTSIDE RECORDS SUMMARY | 2024-12-13 13:04 | XMS_ITS | Clinical Summary ---
[facility] Organization [facility] Address [address] Attn: [place] [address] Care Team Providers Care Hydraulic Design Engineer Name Role Phone Unavailable Primary Care Provider Unavailabl e Encounters Date Type Department Care Team Description 11/11/2024 Abstract [facility] [address] [place] [address] Javi Huffman Jr., MD from Last 3 Months Social History Tobacco Use Types Packs/Day Years Used Date Smoking Tobacco: Never Assessed Sex and Gender Information Value Date Recorded Sex Assigned at Not on file Legal Sex Male 8:23 PM [employer] Gender Identity Not on file Sexual Orientation Not on file Plan of Treatment Health Maintenance Due Date Last Done Comments DTAP/TDAP/TD VACCINES (1 - Tdap) 10/04/2003 HEPATITIS B VACCINES (1 of 3 - 19+ 3-dose series) 10/04/2003 INFLUENZA VACCINE (#1) 2025 HPV VACCINES Aged Out No longer eligi ble based on patient's age to complete this topic
--- NOTE | 2024-12-13 13:35 | ECG_ITS ---
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
--- NOTE | 2024-12-13 13:37 | ED.C_ITS ---
HPI - Psych 2 General: Chief Complaint: Psychiatric Symptoms Stated Complaint: mhe Time Seen by Provider: 12/13/24 13:06 History of Present Illness: 39-year-old male patient presents to the emergency department by EMS. Patient was brought in for suicidal ideation. Patient states that he is not suicidal but just does not want to live anymore. Patient states he has all kinds of things going on in his life to include missing his flight today trying to take care of a sick family member and does not have any help. Patient states he is overwhelmed and at the end of his rope. Patient states he does take medications for anxiety patient has not taken today. Patient has had several drinks unsure of how many drinks he has had today. Related Data Home Medications ?Medication ?Instructions ?Recorded ?Confirmed dicyclomine 20 mg tablet mg PO 10/22/24 11/06/24 escitalopram oxalate 10 mg tablet 10 mg PO 10/22/24 omeprazole 40 mg capsule,delayed mg PO 10/22/24 release ondansetron HCl 8 mg tablet mg PO 10/22/24 11/06/24 Previous Rx's ?Medication ?Instructions ?Recorded albuterol sulfate 90 mcg/actuation 2 puff inhalation Q ID PRN 01/31/23 aerosol inhaler shortness of breath or wheez ing #8.5 grams propranolol 10 mg tablet 10 mg PO BID #180 tabs 05/02 thiamine mononitrate (vit B1) 100 200 mg (2 x 100 mg) PO DAILY 30 11/06/24 mg tablet days #60 tabs cholecalciferol (vitamin D3) 1,250 50,000 unit PO Q7D #12 caps 11/07/24 mcg (50,000 unit) capsule Allergies Allergy/AdvReac Type Severity Reaction Status Date / Time Alpha-Gal Allergy Intermediate Unknown Verified 12/13/24 16:18 (Sbznlxkul-Dgqnz-8,3-Gala Review of Systems 2 General: Reports: 10 or more systems reviewed and unremarkable except in HPI and below PFSH ED 2 PFSH: Medical History History of environmental allergies History of asthma History of bipolar disorder Hasn't been on medication for about 7 years. Surgical History No pertinent past surgical history Family History Father , over dose No problems noted. Mother Hemochromatosis Grandmother No problems noted. Grandmother Cancer lymphoma CAD (coronary artery disease) Diabetes Social History Smoking and tobacco/nicotine status: current every day tobacco/nicotine user Physical Exam 2 Narrative: EXAM NARRATIVE: 39-year-old male patient presents to the emergency department by EMS. Patient was brought in for suicidal ideation. Patient states that he is not suicidal but just does not want to live anymore. Patient states he has all kinds of things going on in his life to include missing his flight today trying to take care of a sick family member and does not have any help. Patient states he is overwhelmed and at the end of his rope. Patient states he does take medications for anxiety patient has not taken today. Patient has had several drinks unsure of how many drinks he has had today. Const: COMMON NORMALS: no acute distress, patient oriented x3 and alert HENMT: COMMON NORMALS: normocephalic and atraumatic HEAD & SCALP: n ormocephalic and atraumatic Neck/C-Spine: COMMON NORMALS: full ROM Resp: COMMON NORMALS: normal respiratory effort and No retractions Cardio: COMMON NORMALS: regular rate RATE: regular rate Neuro: COMMON NORMALS: patient oriented x3, CN's II-XII intact bilaterally and moves all extremities SENSORIUM/ORIENTATION: Yes alert Psych: COMMON NORMALS: speech normal ATTITUDE: Yes agitated SPEECH: Yes normal speech MOOD & AFFECT: Yes elevated mood, Yes anxious and Yes irritable OTHER: SI Skin: COMMON NORMALS: no rashes or lesions noted GENERAL SKIN EXAM: no rashes or lesions noted Course 2 Vital Signs: Vital signs: Vital Signs Temperature 97.7 F 12/13/24 13:02 Pulse Rate 89 12/13/24 16:11 Respiratory Rate 20 H 12/13/24 13:02 Blood Pressure 132/71 12/13/24 16:11 Pulse Oximetry 98 12/13/24 16:11 Oxygen Delivery Me thod Room Air 12/13/24 13:02 MDM - Psych Medical Decision Making 39-year-old male patient presents to the emergency department by EMS. Patient was brought in for suicidal ideation. Patient states that he is not suicidal but just does not want to live anymore. Patient states he has all kinds of things going on in his life to include missing his flight today trying to take care of a sick family member and does not have any help. Patient states he is overwhelmed and at the end of his rope. Patient states he does take medications for anxiety patient has not taken today. Patient has had several drinks unsure of how many drinks he has had today. Given patient's presenting complaints we will medically clear him and have behavioral health evaluate him for possible admission and stabilization of his psychiatric condition. Lab Data 12/13/24 13:48 12/13/24 13:48 Laboratory Results WBC 7.46 10^3/uL (3.29-11.43) 12/13/24 13:48 RBC 5.88 10^6/uL (3.85-5.65) H 12/13/24 13:48 Hgb 18.30 g/dL (11.27-16.99) H 12/13/24 13:48 Hct 54.2 % (37-53) H 12/13/24 13:48 MCV 92.2 fl (82-101) 12/13/24 13:48 MCH 31.1 pg (27-33) 12/13/24 13:48 MCHC 33.8 g/dL (30-55) 12/13/24 13:48 RDW 14.6 % (12.1-15.1) 12/13/24 13:48 Plt Count 187 10^3/cmm (157-399) 12/13/24 13:48 MPV 12.6 fL (7.4-10.4) H 12/13/24 13:48 Neut % (Auto) 51.8 % 12/13/24 13:48 Lymph % (Auto) 32.2 % 12/13/24 13:48 [place] % (Auto) 11.9 % 12/13/24 13:48 Eos % (Auto) 2.5 % 12/13/24 13:48 Baso % (Auto) 1.1 % 12/13/24 13:48 Neut # (Auto) 3.86 10^3/uL (1.8-7.7) 12/13/24 13:48 Lymph # (Auto) 2.4 10^3/uL (0.8-4.8) 12/13/24 13:48 [place] # (Auto) 0.9 10^3/uL (0.2-0.9) 12/13/24 13:48 Eos # (Auto) 0.2 10^3/uL (0.0-0.8) 12/13/24 13:48 Baso # (Auto) 0.1 10^3/uL (0.0-0.1) 12/13/24 13:48 Nucleated RBC % (auto) 0 % 12/13/24 13:48 Nucleated RBCs # 0.0 /100WBC 12/13/24 13:48 Sodium 144 mmol/L (136-145) 12/13/24 13:48 Potassium 3.7 mmol/L (3.5-5.1) 12/13/24 13:48 Chloride 106 mmol/L (98-107) 12/13/24 13:48 Carbon Dioxide 21 mmol/L (22-29) L 12/13/24 13:48 Anion Gap 20.7 (5-19) H 12/13/24 13:48 BUN 12 mg/dL (6-20) 12/13/24 13:48 Creatinine 0.8 mg/dL (0.7-1.2) 12/13/24 13:48 GFR Calculation 107.1 mL/min (90-130) 12/13/24 13:48 Glucose 95 mg/dL (65-115) 12/13/24 13:48 Calculated Osmolality 298 mOsm/kg (285-295) H 12/13/24 13:48 Calcium 9.1 mg/dL (8.5-10.5) 12/13/24 13:48 Total Bilirubin 0.5 mg/dL (0.15-1.2) 12/13/24 13:48 AST 23 U/L (0-40) 12/13/24 13:48 ALT 31 U/L (0-41) 12/13/24 13:48 Alkaline Phosphatase 102 U/L (40-130) 12/13/24 13:48 Total Protein 7.7 g/dL (6.6-8.7) 12/13/24 13:48 Albumin 4.6 g/dL (3.5-5.2) 12/13/24 13:48 Globulin 3.1 g/dL (1.3-4.6) 12/13/24 13:48 Urine Color Love (Yellow) A 12/13/24 14:38 Urine Appearance Slightly cloudy (CLEAR) 12/13/24 14:38 Urine pH 5.5 (5-7) 12/13/24 14:38 Ur Specific [place] 1.019 (1.005-1.030) 12/13/24 14:38 Urine Protein Negative (Negative) 12/13/24 14:38 Urine Glucose (UA) Negative (Normal) 12/13/24 14:38 Urine Ketones Trace (Negative) 12/13/24 14:38 Urine Blood 1+ (Negative) A 12/13/24 14:38 Urine Nitrate Negative (Negative) 12/13/24 14:38 Urine Bilirubin Negative (Negative) 12/13/24 14:38 Urine Urobilinogen 1.0 mg/dL (Negative) 12/13/24 14:38 Ur Leukocyte Esterase Negative (Negative) 12/13/24 14:38 Urine RBC 0-2 /hpf (0-2) 12/13/24 14:38 Urine WBC 0-5 /hpf (0-5) 12/13/24 14:38 Ur Squamous Epith Cells 0-5 /hpf (0-5) 12/13/24 14:38 Amorphous Sediment Not Reportable 12/13/24 14:38 Urine Bacteria None seen /hpf (NONE) 12/13/24 14:38 Hyaline Casts 1.21 /lpf 12/13/24 14:38 Salicylates < 0.3 mg/dL (3-10) L 12/13/24 13:48 Urine Opiates Screen Negative ng/mL (Negative) 12/13/24 14:38 Acetaminophen < 5.0 ug/mL (10-30) L 12/13/24 13:48 Ur Barbiturates Screen Negative ng/mL (Negative) 12/13/24 14:38 Ur Phencyclidine Scrn Negative ng/mL (Negative) 12/13/24 14:38 Ur Amphetamines Screen Negative ng/mL (Negative) 12/13/24 14:38 U Benzodiazepines Scrn Negative ng/mL (Negative) 12/13/24 14:38 Urine Cocaine Screen Negative ng/mL (Negative) 12/13/24 14:38 U Marijuana (THC) Screen Positive ng/mL (Negative) H 12/13/24 14:38 Ethyl Alcohol 163 mg/dL (0-10) H 12/13/24 13:48 Influenza A (PCR) Negative (Negative) 12/13/24 13:46 Influenza Type B (PCR) Negative (Negative) 12/13/24 13:46 RSV (PCR) Negative (Negative) 12/13/24 13:46 SARS-CoV-2 (PCR) Negative (Negative) 12/13/24 13:46 All radiology interpretation(s) finalized by discharge Discharge Plan Discharge Patient Disposition: Admitted As Inpatient Admit Provider: Tevin Walker Clinical Impression: Suicidal ideation Condition: Stable Coding Level of Care Code ED Microwave Radio Technician for Isabella Johnson
[2024-12-13 13:59] LABS: Hematocrit 54.2 % (37-53); Hemoglobin 18.30 g/dL (11.27-16.99); Mean Corpuscular HGB Conc 33.8 g/dL (30-55); Mean Corpuscular Hemoglobin 31.1 pg (27-33); Mean Corpuscular Volume 92.2 fl (82-101); Nucleated Red Blood Cells % 0 %; Platelet Count 187 10^3/cmm (157-399); Red Blood Count 5.88 10^6/uL (3.85-5.65); White Blood Count 7.46 10^3/uL (3.29-11.43)
[2024-12-13 14:13] LABS: Alanine Aminotransferase 31 U/L (0-41); Albumin Level 4.6 g/dL (3.5-5.2); Alcohol Level 163 mg/dL (0-10); Alkaline Phosphatase 102 U/L (40-130); Anion Gap 20.7 (5-19); Aspartate Amino Transferase 23 U/L (0-40); Blood Urea Nitrogen 12 mg/dL (6-20); Calcium 9.1 mg/dL (8.5-10.5); Carbon Dioxide 21 mmol/L (22-29); Chloride 106 mmol/L (98-107); Creatinine Clr Calc Pharmacy 148.6236; Globulin 3.1 g/dL (1.3-4.6); Glucose 95 mg/dL (65-115); Osmolality Calculated 298 mOsm/kg (285-295); Potassium 3.7 mmol/L (3.5-5.1); Sodium 144 mmol/L (136-145); Total Protein 7.7 g/dL (6.6-8.7)
[2024-12-13 14:20] LABS: Acetaminophen < 5.0 ug/mL (10-30); Salicylate < 0.3 mg/dL (3-10)
[2024-12-13 15:11] LABS: PCP Screen Urine Negative (Negative)
[2024-12-13 15:18] LABS: Add Urine Microscopic? YES; Glucose Urine UA Negative (Normal); Nitrate Urine Negative (Negative); Specific Gravity, Urine 1.019 (1.005-1.030)
[2024-12-13 15:43] LABS: Respiratory Syncytial Virus Ce NEGATIVE (Negative); SARS-CoV-2 PCR NEGATIVE (Negative)
[2024-12-13 16:00] VITALS: BP 111/66; PULSE 97; RESP 18; TEMP 36.4; O2SAT 97
[2024-12-13 16:11] VITALS: BP 132/71; PULSE 89; O2SAT 98
--- NOTE | 2024-12-13 17:19 | PC.ADMIT ---
[address] Admission Note: The patient,Dave Valdes,39 y/o, was given written information regarding hospital policies, unit procedures and contact persons. Patient's smoking status: current every day smoker. Vital Signs - 8 hr 12/13/24 13:02 12/13/24 16:11 12/13/24 16:19 Temperature 97.7 F Pulse Rate 116 H 89 Respiratory Rate 20 H Blood Pressure 143/82 132/71 Pulse Oximetry 97 98 Oxygen Delivery Method Room Air Room Air Pt. came into ER d/t feeling overwhelmed. Pt. lost job, taking care of ill family member and in the middle of moving. Pt. is intoxicated with ETOH of 167, is aggitated and confrontational. In ER pt. was reported to be tearful with anxiety. Pt .stated his chief complaint was that he had a breakdown . Pt. stated he was being looked at for possibly having parkinson's or MS is why he rates his health as poor. Pt. stated he was admited to a in pt. [facility] facility in [place] in 2015 when his finace (Nikita) . Pt. stated he does not have any out pt. [facility] HX. Pt. also stated he has Alph-gal
[2024-12-13 20:00] VITALS: BP 118/71; PULSE 109; RESP 17; TEMP 36.8; O2SAT 95
[2024-12-14] VITALS: BP 113/76; PULSE 98; RESP 18; TEMP 36.5; O2SAT 98
[2024-12-14 04:00] VITALS: BP 134/94; PULSE 124; RESP 18; TEMP 36.7; O2SAT 98
[2024-12-14 07:50] VITALS: BP 123/85; PULSE 127; RESP 18; TEMP 36.9; O2SAT 96
[2024-12-14] MEDS: multivitamin therapeutic Tablet 1 TAB PO (09:13)
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
[2024-12-14 11:58] VITALS: BP 110/73; PULSE 92; RESP 16; TEMP 37; O2SAT 97
[2024-12-14 16:00] VITALS: BP 111/74; PULSE 98; RESP 16; O2SAT 97
[2024-12-14] MEDS: quetiapine XR (24HR) 50 mg Tablet PO (17:01)
[2024-12-14 20:00] VITALS: BP 135/85; PULSE 94; RESP 16; TEMP 36.5; O2SAT 96
--- NOTE | 2024-12-15 01:05 | PC.NURSE ---
vs not completed per charge nurse resp 16
[2024-12-15 04:00] VITALS: BP 118/74; PULSE 100; RESP 16; TEMP 37.1; O2SAT 97
[2024-12-15 06:00] VITALS: BMI 26.6
[2024-12-15 08:00] VITALS: BP 106/69; PULSE 78; RESP 16; TEMP 36.7; O2SAT 98
[2024-12-15] MEDS: multivitamin therapeutic Tablet 1 TAB PO (09:58)
[2024-12-15 11:21] VITALS: BP 120/82; PULSE 125; RESP 18; TEMP 36.7; O2SAT 96
--- NOTE | 2024-12-15 11:50 | P.NPUPN_ITS ---
Subjective NPU 2 Subjective: 39-year-old male with borderline persona lity traits, bipolar disorder type II and alcohol abuse admitted with suicidal ideation in the context of alcohol use. The patient had remained labile on the unit. He had stated that he had not stated that he was suicidal to anyone. He had reported no side effects from his medications. He had reported that he was feeling anxious. He had stated that he was planning on moving back to [place] stating that everything had messed up since he moved to [place] more than 6 years ago. The patient had continued to lament that he needed to leave here and start making calls so that he could plan to leave the state. He had acknowledged having episodes that were thought to be seizures previously and continue to minimize the significance of alcohol and possibly leading to blackouts. Mental Status Exam 2 MSE Comments: Casually dressed male who appeared his stated age with a david complexion and poor hygiene at this time. There was no evidence of any abnormal involuntary motor movements, tics or stereotyped movements. There was no tremor appreciated today. His speech was normal in regards to rate, rhythm, and prosody. His mood was described as upset. His affect was labile and irritable. His thought process was linear, logical, and goal-directed. He minimized any suicidal ideation at the moment with no active plan or intent. He denied any homicidal ideation. He did not appear to be responding to internal stimuli. He denied any auditory or visual hallucinations. There was no evidence of any delusional thinking. He was alert and oriented to person place time and situation. His recent and remote memory appeared grossly intact. His insight is poor. His judgment is poor. His impulse control appeared limited. Vitals/I&O/Wt Last Vital Signs Temp 98.1 F 12/15/24 11:21 Pulse 125 H 12/15/24 11:21 Resp 18 12/15/24 11:21 BP 120/82 12/15/24 11:21 Pulse Ox 96 12/15/24 11:21 O2 Del Method Room Air 12/15/24 11:21 Weight last 48 hrs Weight 94.347 kg Weight 90.718 kg Data NPU 12/13/24 13:48 12/13/24 13:48 A&P Assessment and plan (1) Bipolar II disorder, most recent episode major depressive: (2) LYDIA (generalized anxiety disorder): (3) Alcohol abuse: Plan 39-year-old male genetic loading for bipolar disorder admitted involuntarily with significant alcohol abuse, depressed mood, affective instability and anxiety while reporting having a breakdown with worsening depression and some evidence of hypomanic symptoms as well and recent concern of having seizures. #1.? Engage patient in individual milieu and group therapy. #2?? Recommend sober living treatment at the highest level of care to which the patient is willing to commit #3??? CIWA for alcohol withdrawal? #4?? TO-15 minute checks? #5?? Will attempt to gather collateral information #6 Restart outpatient medications. Increase seroquel to 100mg at night, continue Lexapro 10mg daily. PDMP PDMP Reviewed: Not Reviewed Involuntary Hold Information 2 Hold Status: Legal Status: 96 Hour Hold Date/Time Hold Expires: @1201 Attestations NPU 2 Medical Necessity Statement*: Inpatient hospitalization is medically necessary and deemed to ?be ?the clinically appropriate intervention ?at this time.? We will monitor/initiate medications and make changes as indicated.? The patient?s likely length of stay 2-4 days. Coding Level of Care Code Acute Code for [facility] Fwd Diagnoses Bipolar II disorder, most recent episode major depressive F31.81 LYDIA (generalized anxiety disorder) F41.1 Alcohol abuse F10.10
[2024-12-15 14:39] VITALS: BP 120/67; PULSE 122; RESP 16; TEMP 36.3; O2SAT 97
[2024-12-15 20:00] VITALS: BP 115/72; PULSE 117; RESP 18; TEMP 36.6; O2SAT 99
--- NOTE | 2024-12-16 01:43 | PC.NURSE ---
vs not completed per charge nurse resp 16
--- NOTE | 2024-12-16 06:25 | PC.NURSE ---
vs not completed per charge nurse resp 16
[2024-12-16 08:00] VITALS: BP 127/61; PULSE 95; RESP 17; TEMP 36.4; O2SAT 97
[2024-12-16] MEDS: multivitamin therapeutic Tablet 1 TAB PO (08:24)
[2024-12-16 12:00] VITALS: BP 122/78; PULSE 116; RESP 18; TEMP 36.4; O2SAT 96
[2024-12-16 12:55] VITALS: BP 122/78; PULSE 96; RESP 17; TEMP 36.6; O2SAT 96
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
== END 2024-12-16 14:18 | disposition home or self-care (01) | DRG 885 ==
LOC: ER 13:40 → NP 15:55
PROVIDERS: Admitting Provider Psychiatry & Neurology Psychiatry; Emergency Provider Registered Nurse; PCP Electrodiagnostic Medicine; Visit Provider Psychiatry & Neurology Psychiatry
DX: F31.81 Bipolar II disorder (principal); F41.1 Generalized anxiety disorder; F10.10 Alcohol abuse, uncomplicated; F17.200 Nicotine dependence, unspecified, uncomplicated; Z81.8 Family history of other mental and behavioral disorders; Z91.51 Personal history of suicidal behavior; Y90.6 Blood alcohol level of 120-199 mg/100 ml; Z63.4 Disappearance and death of family member; J45.909 Unspecified asthma, uncomplicated
CPT/HCPCS: 36415; 80053; 80306; 80307; 81001; 85025; 87637; 93005; 93010; 97150; 97165; 99285; J9999

== ENCOUNTER → 2025-02-12 13:03 | Outpatient (BNVA) | payer OTHER, SELFPAY | PROVIDERS: PCP Electrodiagnostic Medicine; Visit Provider Psychiatry & Neurology Psychiatry | DX: F31.81 Bipolar II disorder (principal); F10.10 Alcohol abuse, uncomplicated; Z79.899 Other long term (current) drug therapy | CPT/HCPCS: 80061; 83036 ==